=== PATIENT | female | born 1975 | race Caucasian/White ===

== ENCOUNTER 2023-01-29 08:08 | Outpatient (CLI) | payer OTHER, SELFPAY | END 2023-01-29 08:09 | disposition home or self-care (01) | LOC: INJ CL 08:08 | PROVIDERS: PCP Student in an Organized Health Care Education/Training Program; Visit Provider Family Medicine | DX: M54.16 Radiculopathy, lumbar region (principal); M51.36 Other intervertebral disc degeneration, lumbar region | CPT/HCPCS: 62323; J0702; Q9966 ==

== ENCOUNTER 2024-02-02 14:52 | Emergency (ER) | payer OTHER, SELFPAY ==
[2024-02-02 14:57] VITALS: BP 122/89; PULSE 106; RESP 16; TEMP 36.6; O2SAT 99; BMI 36.7
--- NOTE | 2024-02-02 15:03 | ED.UPPEXIN ---
HPI - Extremity Injury (Upper) General Time Seen by Provider: 15:04 Date Seen: 02/02/24 Chief Complaint: Extremity Pain/Injury, Upper Stated Complaint: L wrist popped at work Time Seen by Provider: 02/02/24 14:53 Source: patient and RN notes reviewed Mode of arrival: ambulatory Limitations: no limitations History of Present Illness HPI narrative: This 48-year-old female is coming in with left wrist pain that started at work while changing out the bag for the for the [employer] machine. Patient works at [employer]. This happened just prior to arrival. She was taking out the bag, removing the bottom been portion, went to replace it in and had a sudden pop in her right wrist, points to the ulnar area. She has pain that does shoot up the medial side of the forearm. It hurts if she supinates her arm. No numbness tingling. Did not hit this. She put ice on it right away. She did take a naproxen around 10:00 a.m. for generalized aches and pains that she has on a daily basis per report. Related Data Home Medications ?Medication ?Instructions ?Recorded ?Confirmed clonidine HCl 0.1 mg tablet 0.1 mg PO BID 01/05/23 01/05/23 cyclobenzaprine 10 mg tablet 10 mg PO 3XD 01/05/23 01/05/23 Allergies Allergy/AdvReac Type Severity Reaction Status Date / Time No Known Drug Allergies Allergy Verified 01/05/23 12:51 Review of Systems Narrative: As per HPI. Exam Const: Vital Signs, click to edit/add: Vital Signs - 24 hr 02/02/24 14:57 Temperature 98 F Pulse Rate [Pulse Oximeter] 106 H Respiratory Rate 16 Blood Pressure [Ri ght Upper Arm] 122/89 Pulse Oximetry 99 Oxygen Delivery Me thod Room Air This 48-year-old female is alert, interactive, no apparent distress. Ambulatory into the ED of her own accord. She has an ice pack on the medial portion of her wrist. On inspection, there is no visible erythema, no ecchymosis, no swelling noted about her wrist joint. Distal sensation of her fingers are intact, has normal cap refill. Has normal flexion and extension of her fingers, if the wrist is kept in neutral position she can mobilize her fingers without any problem. She has strong radial pulse, no snuffbox tenderness. Her pain seems to be over the distal ulnar area into that medial joint but there is no noted swelling at this time. She can flex and extend at the wrists, has normal resisted flat khalil and extension at the wrist. Ulnar deviation does not bother her but radial deviation causes pain along the distal ulnar area. There is no pain in the forearm. She has full range of motion about the elbow and no palpable pain about the elbow. Documenting provider has reviewed patient's vital signs: yes Course Course ED Course: Reviewed with patient that we will obtain x-rays just to ensure that we do not see any small avulsion. This certainly could be tendinitis or even cartilaginous tear within the wrist. If x-rays are negative, will place her in a wrist splint and have her follow-up with Dr. Schrader whom she is established with. Reevaluation(s) Time of Reevaluation #1: 15:40 Reevaluation #1: Reviewed with patient her x-ray report, did show her a picture of the dystrophic calcification that is seen. Will put her in the wrist splint, give her limits of using the splinting and no lifting greater than 10 lb until further evaluation. She will need to follow-up with Dr. Schrader. Vital Signs Vital signs: Initial Vital Signs Temperature 98 F 02/02/24 14:57 Temperature Source Temporal Artery Scan 02/02/24 14:57 Pulse Rate 106 H 02/02/24 14:57 Respiratory Rate 16 02/02/24 14:57 Blood Pressure 122/89 02/02/24 14:57 Blood Pressure Mean 100 02/02/24 14:57 Blood Pressure Position Sitting 02/02/24 14:57 Pulse Oximetry 99 02/02/24 14:57 Oxygen Delivery Method Room Air 02/02/24 14:57 Vital Signs Temperature 98 F 02/02/24 14:57 Pulse Rate 106 H 02/02/24 14:57 Respiratory Rate 16 02/02/24 14:57 Blood Pressure 122/89 02/02/24 14:57 Pulse Oximetry 99 02/02/24 14:57 Oxygen Delivery Method Room Air 02/02/24 14:57 Temperature 98 F 02/02/24 14:57 Pulse Rate 106 H 02/02/24 14:57 Respiratory Rate 16 02/02/24 14:57 Blood Pressure 122/89 02/02/24 14:57 Pulse Oximetry 99 02/02/24 14:57 Oxygen Delivery Method Room Air 02/02/24 14:57 MDM - Extremity Injury (Upper) Imaging Data XR left wrist: Attestation: I have reviewed the pertinent imaging results. My impression: Do not appreciate any fracture, await Radiology over-read. Radiologist's impression: Patient: ROSMERY RUBIN Facility:?[facility] Patient ID:?[id number] Site Patient ID:?[id number]. Site :?[id number] Study:?XRay-Extremity Left Wrist 3V-02/02/2024 3:21:44 PM Ordering Physician:?Keri Gilmore Final Report: Indication: Pain over distal ulna Technique: Three views left wrist Comparison: None Findings/Impression: Bones: Alignment is normal. No fractures or bone lesions. Joint spaces: Unremarkable. Soft tissues: Minimal dystrophic calcification dorsal aspect of the wrist. Dictated by Ankit Kelly MD @ 02/02/2024 3:31:19 PM (Electronic Signature) Discharge Plan Discharge Clinical Impression: Acute pain of left wrist Instructions: Wrist Injury (ED) Additional Instructions: Use wrist splint while working in his needed for comfort. Can continue to ice and elevate to help decrease pain in the next couple of days. Can use Tylenol and ibuprofen per bottle directions. If you are on naproxen chronically, would avoid ibuprofen but still can use Tylenol. Please contact the clinic and get scheduled for follow-up with Dr. Schrader preferably within the next week. He will need to re-evaluate and direct any further management. This certainly could be ligamentous or cartilage injury within the wrist. It is undefined exactly what the extent of the pain is coming from and will need further evaluation. Activity Level: Activity as Tolerated Prescriptions: No Action cyclobenzaprine 10 mg tablet 10 mg PO 3XD clonidine HCl 0.1 mg tablet 0.1 mg PO BID Follow Up/Referrals: MILTON MAN DO [Primary Care Provider] - Stand Alone Forms: [employer] Info Instructions
--- NOTE | 2024-02-02 15:08 | CRLHL7_ITS ---
For Patients: As a result of the Century Cures Act, medical imaging exams and procedure reports are released immediately into your electronic medical record. You may view this report before your referring provider. If you have questions, please contact your health care provider. Indication: Pain over distal ulna Technique: Three views left wrist Comparison: None Findings/Impression: Bones: Alignment is normal. No fractures or bone lesions. Joint spaces: Unremarkable. Soft tissues: Minimal dystrophic calcification dorsal aspect of the wrist. Dictated by Ankit Kelly MD @ 02/02/2024 3:31:19 PM (Electronically Signed)
== END 2024-02-02 15:57 | disposition home or self-care (01) ==
LOC: ED 15:33
PROVIDERS: Emergency Provider Family Medicine; PCP Student in an Organized Health Care Education/Training Program
DX: M25.532 Pain in left wrist (principal)
CPT/HCPCS: 73110; 99283

== ENCOUNTER 2024-10-27 13:43 | Emergency (ER) | payer OTHER, SELFPAY ==
--- OUTSIDE RECORDS SUMMARY | 2024-09-12 08:45 | XMS_ITS | Encounter Summary ---
Author Organization [address] [place] [address] Care Team Providers Care Administrative Resident Name Role Phone Clarke Martinez DO Primary Care Provider [phone] Reason for Visit * Rehab Therapy Occupational Therapy (Routine: Next available opening) - Authorized Specialty Diagnoses / Procedures Referred By Jair hernandez Referred To Contact Occupational Therapy Diagnoses Cerebrovascular accident (CVA) due to other mechanism (H) [address] [address] Phone: tel: Referral ID Status Reason Start Date Expiration Date V isits Requested Visits Authorized [id number] Authorized 03/08/2024 03/07/2025 60 60 Encounter Details Date Type Department Care Team (Late st Contact Info) Description 09/12/2024 8:45 AM CDT Therapy Visit [address] [phone] Stacia Zurita MD [address] [id number] Sandra Hernandez OTR [facility] [address] [place] [address] Cerebrovascular accident (CVA) due to other mechanism (H) (Primary Dx) Social History Tobacco Use Types Packs/Day Years Used Date Smoking Tobacco: Never Alcohol Use Standard Drinks/Week Comments Not Currently 0 (1 standard drink = 0.6 oz pur e alcohol) Food Insecurity Answer Date Recorded Within the past 12 months, d id you worry that your food would run out before you got money to buy more? No 05/02/2024 Within the past 12 months, d id the food you bought just not last and you didn t have money to get more? No 05/02/2024 Housing Stability Answer Date Recorded Do you have housing? (David luna is defined as stable permanent housing and does not include staying outside in a car, in a tent, in an abandoned building, in an overnight snf, or couch-surfing.) Yes 05/02/2024 Are you worried about losing your housing? No 05/02/2024 Financial Resource Strain Answer Date R ecorded Within the past 12 months, h ave you or your family members you live with been unable to get utilities (heat, electricity) when it was really needed? No 05/02/2024 Transportation Needs Answer Date Record ed Within the past 12 months, h as lack of transportation kept you from medical appointments, getting your medicines, non-medical meetings or appointments, work, or from getting things that you need? No 05/02/2024 Interpersonal Safety Answer Date Record ed Do you feel physically and e motionally safe where you currently live? Yes 05/18/2024 Within the past 12 months, h ave you been hit, slapped, kicked or otherwise physically hurt by someone? No 05/18/2024 Within the past 12 months, h ave you been humiliated or emotionally abused in other ways by your partner or ex-partner? No 05/18/2024 Comments Unknown Sex and Gender Information Value Date Recorded Sex Assigned at Not on file Legal Sex Female 5:46 PM CDT Gender Identity Not on file Sexual Orientation Not on file documented as of this encounter Plan of Treatment Upcoming Encounters Date Type Department Care Team (Late st Contact Info) Description 11/02/2024 7:15 AM CDT Office Visit [facility] [address] [facility] [address] [place] [phone] Lemuel Davis MD [address] [place], [place] [phone] Charly Howell MD [address] [facility] [address] [place], [place] [id number] 11/23/2024 3:30 PM CDT Office Visit [facility] Neurology [address] [place] [address] Meghann Navarro, [facility] [address] [facility] [id number] [place] [address] documented as of this encounter Visit Diagnoses Diagnosis Cerebrovascular accident (CVA) due to other mechanism (H)- Primary documented in this encounter Care Teams Administrative Resident Relationship Specialty Start Date End Date Clarke Martinez DO [address] [place] [address] PCP - General 05/04/24 documented as of this encounter
--- OUTSIDE RECORDS SUMMARY | 2024-09-18 08:45 | XMS_ITS | Encounter Summary ---
Author Organization [address] [place] [address] Care Team Providers Care Pipe Stem Sawyer Name Role Phone Clarke Martinez DO Primary Care Provider [phone] Reason for Visit * Rehab Therapy Occupational Therapy (Routine: Next available opening) - Authorized Specialty Diagnoses / Procedures Referred By Jair hernandez Referred To Contact Occupational Therapy Diagnoses Cerebrovascular accident (CVA) due to other mechanism (H) [address] [address] Phone: tel: Referral ID Status Reason Start Date Expiration Date V isits Requested Visits Authorized [id number] Authorized 03/08/2024 03/07/2025 60 60 Encounter Details Date Type Department Care Team (Latest Contact Info) Description 09/18/2024 8:45 AM CDT Therapy Visit [address] [phone] Stacia Zurita MD [address] [id number] Sindi Gutierrez, OTR Cerebrovascular accident (CVA) due to other mechanism (H) (Primary Dx); Visual disturbance; Lack of coordination Social History Tobacco Use Types Packs/Day Years [...] in an abandoned building, in an overnight long-term, or couch-surfing.) Yes 05/02/2024 Are you worried [...] Description 11/02/2024 7:15 AM CDT Office Visit [facility] [address] [facility] [address] [place] [address] Lemuel Davis MD [address] [place] [address] Charly Howell MD [address] [facility], CLINIC [address] [place] [address] 11/23/2024 3:30 PM CDT Office Visit [facility] Neurology [address] [place] [phone] Meghann Navarro, CONTRACT TECHNICAL WRITER [facility] [id number] [place], [place] [id number] documented as of this encounter Visit Diagnoses Diagnosis Cerebrovascular accident (CVA) due to other mechanism (H)- Primary Visual disturbance Unspecified visual disturbance Lack of coordination documented in this encounter Care Teams Pipe Stem Sawyer Relationship Specialty Start Date End Date Clarke Martinez DO [address] [place] [address] PCP - General 05/04/24 documented as of this encounter
--- OUTSIDE RECORDS SUMMARY | 2024-09-25 08:45 | XMS_ITS | Encounter Summary ---
Author Organization [address] [place] [address] Care Team Providers Care Living Nurse Name Role Phone Clarke Martinez DO Primary Care Provider [phone] Reason for Visit * Rehab Therapy Occupational Therapy (Routine: Next available opening) - Authorized Specialty Diagnoses / Procedures Referred By Jair hernandez Referred To Contact Occupational Therapy Diagnoses Cerebrovascular accident (CVA) due to other mechanism (H) [address] [address] Phone: tel: Referral ID Status Reason Start Date Expiration Date V isits Requested Visits Authorized [id number] Authorized 03/08/2024 03/07/2025 60 60 Encounter Details Date Type Department Care Team (Late st Contact Info) Description 09/25/2024 8:45 AM CDT Therapy Visit [address] [phone] Stacia Zurita MD [address] [id number] Sandra Hernandez OTR [facility] [address] [place] [address] Cerebrovascular accident (CVA) due to [...] in an abandoned building, in an overnight retirement, or couch-surfing.) Yes 05/02/2024 Are you worried [...] Description 11/02/2024 7:15 AM CDT Office Visit [facility] [address] [facility] [address] [place] [phone] Lemuel Davis MD [address] [place], [place] [address] Charly Howell MD 516 [facility] CL[facility] [address] [place], [place] [address] 11/23/2024 3:30 PM CDT Office Visit [facility] Neurology [address] [place] [address] Meghann Navarro, [facility] [address] [facility] [id number] [place] [address] documented as of this encounter Visit Diagnoses Diagnosis Cerebrovascular accident (CVA) due to other mechanism (H)- Primary documented in this encounter Care Teams Living Nurse Relationship Specialty Start Date End Date Clarke Martinez DO [address] [place] [address] PCP - General 05/04/24 documented as of this encounter
--- OUTSIDE RECORDS SUMMARY | 2024-09-27 10:00 | XMS_ITS | Encounter Summary ---
Author Organization [place] Address [facility] [place] [address] Care Team Providers Care Parts Sales Representative Name Role Phone Clarke Martinez Primary Care Provider [phone] Reason for Referral * Clinically Administered Medications (Routine) - Authorized Specialty Diagnoses / Procedures Referred By Jair hernandez Referred To Contact Neurology Diagnoses Intractable chronic migraine without aura and without status migrainosus Procedures ZZC BOTULINUM TOXIN A PER 1 UNIT 155 units [id number] Meghann Navarro APRN EGG TRAYER [address] [place] [phone] Phone: tel: fax: [facility] [address] 3rd [place] [address] Phone: tel: fax: Referral ID Status Reason Start Date Expiration Date V isits Requested Visits Authorized [id number] Authorized 09/29/2024 03/07/2025 100 100 * Medication Prior Authorization - Closed Specialty Diagnoses / Procedures Referred By Jair hernandez Referred To Contact Diagnoses Migraine without aura and without status migrainosus, not intractable Meghann Navarro APRN EGG TRAYER [address] [place], [place] [id number] Phone: tel: fax: Referral ID Status Reason Start Date Expiration Date Visits Re quested Visits Authorized [id number] Closed 1 1 * Consultation (Routine: Next available opening) - Pending Review Specialty Diagnoses / Procedures Referred By Contanel t Referred To Contact Ophthalmology Diagnoses H/O ischemic multifocal multiple vascular territories stroke Visual impairment Meghann Navarro APRN EGG TRAYER [address] [address] Phone: tel: fax: Referral ID Status Reason Start Date Expiration Date V isits Requested Visits Authorized [id number] Pending Review 09/27/2024 09/27/2025 1 1 Question Answer Referral Type: Optometry/Ophthalmology Reason for Referral: Comprehensive Eye Exam Patient Scheduling Instructions: [facility] will call you to coordinate your care as prescribed by your provider. If you don't hear from a ict sales representative within 2 business days, please call . Additional Information: visual impairement and recent history of multifocal strokes Comments Please be aware that coverage of these services is subject to the terms and limitations of your health insurance plan. Call member services at your health plan with any benefit or coverage questions. [employer] will call you to coordinate your care as prescribed by your provider. If you don't hear from a ict sales representative within 2 business days, please call . Reason for Visit * Reason Comments Headache * Consultation (Routine: Next available opening) - Pending Review Specialty Diagnoses / Procedures Referred By Contanel t Referred To Contact Diagnoses Cerebrovascular accident (CVA) due to other mechanism (H) Ramy Vanegas MD [address] [place] [address] Phone: tel: fax:[phone] Referral ID Status Reason Start Date Expiration Date V isits Requested Visits Authorized [id number] Pending Review 05/09/2024 05/09/2025 1 1 Encounter Details Date Type Department Care Team (Leonie st Contact Info) Description 09/27/2024 10:00 AM CDT Virtual Visit [facility] [address] [place] [address] Meghann Navarro, DONTE [id number] [place] [address] Intractable chronic migraine without aura and without status migrainosus (Primary Dx); H/O ischemic multifocal multiple vascular territories stroke; Visual impairment; Migraine without aura and without status migrainosus, not intractable Social History Tobacco Use Types Packs/Day Years Used Date Smoking Tobacco: Never Smokeless Tobacco: Never Tobacco Cessation:Counseling Given: Not Answered Alcohol Use Standard Drinks/Week Comments Not Currently 0 (1 standard drink = 0.6 oz pur e alcohol) PHQ-2 Answer Date Recorded PHQ-2 Score 3 09/27/2024 Food Insecurity Answer Date Recorded Within the [...] Date Recorded Do you have housing? (David g is defined as stable permanent housing and does not include staying outside in a car, in a tent, in an abandoned building, in an overnight fpc, or couch-surfing.) Yes 05/02/2024 Are you worried [...] on file documented as of this encounter Patient Instructions * Patient Instructions* Meghann Navarro APRN CNP - 09/27/2024 10:00 AM CDT Plan: Updated eye exam Acute Treatment: -For acute treatment of mild headache, take acetaminophen as needed. Do not exceed more than 10 days per month to avoid medication overuse. -For acute treatment of moderate to severe headache, take reyvow at the onset of headache, Do not exceed more than 4 days per month. Do not drive for at least 8 hours -may cause severe drowsiness -For headache related nausea, or as a rescue medicine for headache, prochlorperazine with benadryl needed. Preventive Treatment: -For headache prevention, may try to increase topiramate -up to 100 mg at bedtime -take 3 pills at bedtime for a week than take four pills if tolerated Adding Botox to migraine prevention History of stroke, recovering slowly and less facial and right hand strength recovered. Able to drive again. Blood pressure improved Follow up -will call you Botox approved Non Botox -in 3-6 months after starting Botox * Attachments The following attachments cannot be sent through Care Everywhere. * Lasmiditan (Russian) * OnabotulinumtoxinA Injection (Russian) documented in this encounter Progress Notes * Meghann Navarro APRN CNP - 09/27/2024 10:00 AM CDT Images from the original note were not included. Virtual Visit Details Type of service: Video Visit Originating Location (pt. Location): Home Distant Location (provider location): Off-site Platform used for Video Visit: [facility] Headache Neurology Consult September 27, 2024 Yumiko Loya Date of : 1975 Age: [age] year old Requesting physician: Ramy Vanegas MD Assessment and Recommendations: Yumiko Loya is a 49 year old female Chronic migraines complicated by history of recent stroke Visual impairment Plan: Updated eye exam Acute Treatment: -For acute treatment of mild headache, take acetaminophen as needed. Do not exceed more than 10 days per month to avoid medication overuse. -For acute treatment of moderate to severe headache, take reyvow at the onset of headache, Do not exceed more than 4 days per month. Do not drive for at least 8 hours -may cause severe drowsiness -For headache related nausea, or as a rescue medicine for headache, prochlorperazine with benadryl needed. Preventive Treatment: -For headache prevention, may try to increase topiramate -up to 100 mg at bedtime -take 3 pills at bedtime for a week than take four pills if tolerated Adding Botox to migraine prevention History of stroke, recovering slowly and less facial and right hand strength recovered. Able to drive again. Blood pressure improved. Continue to follow up with PCP/has appointment with one of our general neurologist Follow up -will call you Botox approved Non Botox -in 3-6 months after starting Botox The longitudinal plan of care for Yumiko was addressed during this visit. Due to the added complexity in care, I will continue to support Yumiko in the subsequent management of this condition(s) and with the ongoing continuity of care of this condition(s). 56 minutes spent on the date of the encounter doing video access, chart review, results review, meds review, treatment plan, documentation and further activities as noted above Meghann Navarro APRN, EGG TRAYER [facility] Chief Complaint: Chief Complaint Patient presents with Headache History is obtained from the patient and medical record. 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 Patient is on hydralazine, clonidine, verapamil for blood pressure management Last visit with PCP Dr Martinez's note reviewed. Headache history: Headaches since teen. Mother and maternal line -all deal with headaches and a lot of paternal side -headaches. Stroke in the family. Total headaches any type/pain degree 30 days out of 30 days per month and moderate to severe 30 days out of 30 days per month in the past 3 months. Associated with light and noise sensitivity, no nausea currently or vomiting, sometimes blurry vision. Pain feels like a zafar squeezing head both side before stoke and now headache more upper left /top and feels like pressure. Leading up to stroke had thunderclap headaches 6 weeks before stroke and did not respond to treatment-headaches were triggered/worsen with sexual activity and maximized on sumatriptan. Headaches were consistently severe first weeks after the stroke and now gradually improving because staying on top of her headaches with medications-naproxen. Takes naproxen a couple times/day and may be 3 days/week. Trying to take acetaminophen instead and not as bed headaches in the past 2 weeks. Being in the dark and quiet room and medical marijuana keep headaches lower. Does headache treatment everyday. Vision is impaired post stroke -lost near vision -close Blood pressure normalized per last PCP visit-120s Headache Tx Started on topiramate in May and has been taking 50 mg at bedtime and no side effects. No historyof renal stones. 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 Past Medical History: Past Medical History: Diagnosis Date Chronic headaches Hot flashes Past Surgical History: Past Surgical History: Procedure Laterality Date IR ANGIOGRAM CAROTID CERVICAL BILATERAL 05/06/2024 IR CAROTID CEREBRAL ANGIOGRAM BILATERAL 05/03/2024 Social History: Social History Socioeconomic History Marital status: Spouse name: Not on file Number of children: Not on file Years of education: Not on file Highest education level: Not on file Occupational History Not on file Tobacco Use Smoking status: Never Smokeless tobacco: Never Substance and Sexual Activity Alcohol use: Not Currently Drug use: Not on file Sexual activity: Not on file Other Topics Concern Not on file Social History Narrative Not on file Social Drivers of Health Financial Resource Strain: Low Risk (05/02/2024) Financial Resource Strain Within the past 12 months, have you or your family members you live with been unable to get utilities (heat, electricity) when it was really needed?: No Food Insecurity: Low Risk (05/02/2024) Food Insecurity Within the past 12 months, did you worry that your food would run out before you got money to buy more?: No Within the past 12 months, did the food you bought just not last and you didn???t have money to getmore?: No Transportation Needs: Low Risk (05/02/2024) Transportation Needs Within the past 12 months, has lack of transportation kept you from medical appointments, getting your medicines, non-medical meetings or appointments, work, or from getting things that you need?: No Physical Activity: Not on file Stress: Not on file Social Connections: Socially Integrated (10/04/2023) [facility] from [facility] [employer] [facility] Social Connections Do you often feel lonely or isolated from those around you?: 0 Interpersonal Safety: Low Risk (05/18/2024) Interpersonal Safety Do you feel physically and emotionally safe where you currently live?: Yes Within the past 12 months, have you been hit, slapped, kicked or otherwise physically hurt by someone?: No Within the past 12 months, have you been humiliated or emotionally abused in other ways by your partner or ex-partner?: No Housing Stability: Low Risk (05/02/2024) Housing Stability Do you have housing? : Yes Are you worried about losing your housing?: No Family History: Family History Problem Relation Age of Onset Coronary Artery Disease Early Onset Mother 35 Cerebrovascular Disease Father 55 Allergies: No Known Allergies Medications: Current Outpatient Medications: aspirin 81 MG EC tablet, Take 1 tablet (81 mg) by mouth daily., Disp: 100 tablet, Rfl: 0 cloNIDine (CATAPRES) 0.1 MG tablet, Take 1 tablet (0.1 mg) by mouth 2 times daily., Disp: 60 tablet, Rfl: 0 cyclobenzaprine (FLEXERIL) 10 MG tablet, Take 10 mg by mouth 3 times daily as needed for muscle spasms., Disp: , Rfl: hydrALAZINE (APRESOLINE) 25 MG tablet, Take 0.5 tablets (12.5 mg) by mouth every 8 hours., Disp: 90tablet, Rfl: 0 magnesium oxide (MAG-OX) 400 MG tablet, Take 1 tablet (400 mg) by mouth daily., Disp: 90 tablet, Rfl: 0 naproxen (NAPROSYN) 500 MG tablet, Take 500 mg by mouth 2 times daily as needed for moderate pain.,Disp: , Rfl: topiramate (TOPAMAX) 25 MG tablet, Take 1 tablet (25 mg) by mouth at bedtime. For 6days then increase to 2tablets po at bedtime daily, Disp: 120 tablet, Rfl: 0 verapamil ER (CALAN-SR) 240 MG CR tablet, Take 1 tablet (240 mg) by mouth at bedtime., Disp: 90 tablet, Rfl: 0 albuterol (PROAIR HFA/PROVENTIL HFA/VENTOLIN HFA) 108 (90 Base) MCG/ACT inhaler, Inhale 1-2 puffs into the lungs every 4 hours as needed for shortness of breath or wheezing., Disp: , Rfl: Physical Exam: There were no vitals taken for this visit. Physical Exam: General: NAD Neurologic: Mental Status Exam: Alert, awake and oriented to situation. No dysarthria. Speech of normal fluency. Data: MRI brain ( 12/01/2022 9:20 AM CDT Office Visit [facility] [place] [facility] [address] [place] [address] Avinash Hayden MD [address] [place] [address] Consult (Headaches, referred by Dr Schrader) 09/27/2024 9:58 AM HIT-6 When you have headaches, how often is the pain severe 10 How often do headaches limit your ability to do usual daily activities including household work, work, school, or social activities? 13 When you have a headache, how often do you wish you could lie down? 13 In the past 4 weeks, how often have you felt too tired to do work or daily activities because of your headaches 13 In the past 4 weeks, how often have you felt fed up or irritated because of your headaches 13 In the past 4 weeks, how often did headaches limit your ability to concentrate on work or daily activities 13 HIT-6 Total Score 75 Proxy-reported 09/27/2024 9:59 AM MIDAS - in the past three months: On how many days did you miss work or school because of your headaches? 0 How many days was your productivity at work or school reduced by half or more because of your headaches? 0 On how many days did you not do household work because of your headaches? 25 How many days was your productivity in household work reduced by half or more because of your headaches? 25 On how many days did you miss family, social, or leisure activities because of your headaches? 10 On how many days did you have a headache? 90 On a scale of 0-10, on average how painful were these headaches? 4 MIDAS Score 60 (IV - Severe Disability) documented in this encounter Nursing Notes * Tigist Briones - 09/27/2024 10:00 AM CDT Current patient location: [address] [place] [address] Is the patient currently in the state of [place]? YES Visit mode: VIDEO If the visit is dropped, the patient can be reconnected by:TELEPHONE VISIT: Phone number: Telephone Information: Will anyone else be joining the visit? NO (If patient encounters technical issues they should call [phone] :[phone]) Are changes needed to the allergy or medication list? Pt stated no med changes Are refills needed on medications prescribed by this physician? NO Rooming Documentation: Questionnaire(s) completed Reason for visit: Headache Tigist Briones VVF documented in this encounter Plan of Treatment Upcoming Encounters Date Type Department Care Team (Late st Contact Info) Description 11/02/2024 7:15 AM CDT Office Visit [facility] [address] [facility] [address] Clin [address] [place] [phone] Lemuel Davis MD [address] [place] [address] Charly Howell MD [address] [facility] [address] [place], [place] [phone] 11/23/2024 3:30 PM CDT Office Visit [facility] [address] [place] [address] Meghann Navarro, ROCK WORKER [facility] [address] [facility] [id number] [place], [place] [id number] Scheduled Referrals Name Type Priority Associated Diagnoses Orde r Schedule Adult Eye Aerospace Assembler Referral Referral Routine: Next available opening H/O ischemic multifocal multiple vascular territories stroke Visual impairment Expected: 09/27/2024 (Approximate), Expires: 09/27/2025 documented as of this encounter Visit Diagnoses Diagnosis Intractable chronic migraine without aura and without status migrainosus- Primary Chronic migraine without aura, with intractable migraine, so stated, without mention of status migrainosus H/O ischemic multifocal multiple vascular territories stroke Transient ischemic attack (TIA), and cerebral infarction without residual deficits Visual impairment Unspecified visual loss Migraine without aura and without status migrainosus, not intractable Migraine without aura, without mention of intractable migraine without mention of status migrainosus documented in this encounter Additional Health Concerns Assessment Noted Time PHQ-9 Depression Total Score: 7 09/28/19 25 9:57 AM CDT documented as of this encounter Care Teams Parts Sales Representative Relationship Specialty Start Date End Date Clarke Martinez [place] [address] PCP - General 05/04/24 documented as of this encounter
--- OUTSIDE RECORDS SUMMARY | 2024-10-03 08:45 | XMS_ITS | Encounter Summary ---
Author Organization [address] [place] [address] Care Team Providers Care Associate Professor Of Biblical Studies Name Role Phone Clarke Martinez DO Primary Care Provider [phone] Reason for Visit * Rehab Therapy Occupational Therapy (Routine: Next available opening) - Authorized Specialty Diagnoses / Procedures Referred By Jair hernandez Referred To Contact Occupational Therapy Diagnoses Cerebrovascular accident (CVA) due to other mechanism (H) [address] [address] Phone: tel: Referral ID Status Reason Start Date Expiration Date V isits Requested Visits Authorized [id number] Authorized 03/08/2024 03/07/2025 60 60 Encounter Details Date Type Department Care Team (Late st Contact Info) Description 10/03/2024 8:45 AM CDT Therapy Visit [address] [phone] Stacia Zurita MD [address] [id number] Sandra Hernandez OTR [facility] [address] [place] [address] Cerebrovascular accident (CVA) due to other mechanism (H) (Primary Dx) Social History Tobacco Use Types Packs/Day Years Used Date Smoking Tobacco: Never Smokeless Tobacco: Never Alcohol Use Standard Drinks/Week Comments [...] in an abandoned building, in an overnight jail, or couch-surfing.) Yes 05/02/2024 Are you worried [...] Upcoming Encounters Date Type Department Care Team ([facility] st Contact Info) Description 11/02/2024 7:15 AM CDT Office Visit [address] [address] Lemuel Davis MD [address] [place], [place] [address] Charly Howell MD [address] [facility] [address] [place] [address] 11/23/2024 3:30 PM CDT Office Visit [facility] Neurology [address]rd [place] [phone] Meghann Navarro, DONTE [facility] [address] [facility] [id number] [place], [place] [address] documented as of this encounter Visit Diagnoses Diagnosis Cerebrovascular accident (CVA) due to other mechanism (H)- Primary documented in this encounter Additional Health Concerns Assessment Noted Time PHQ-9 Depression Total Score: 7 09/28/19 25 9:57 AM CDT documented as of this encounter Care Teams Associate Professor Of Biblical Studies Relationship Specialty Start Date End Date Clarke Martinez DO [address] [place] [address] PCP - General 05/04/24 documented as of this encounter
--- OUTSIDE RECORDS SUMMARY | 2024-10-09 08:45 | XMS_ITS | Encounter Summary ---
Author Organization [address] [place] [address] Care Team Providers Care Optical Glass Inspector Name Role Phone Clarke Martinez DO Primary Care Provider [phone] Reason for Visit * Rehab Therapy Occupational Therapy (Routine: Next available opening) - Authorized Specialty Diagnoses / Procedures Referred By Jair hernandez Referred To Contact Occupational Therapy Diagnoses Cerebrovascular accident (CVA) due to other mechanism (H) [address] [address] Phone: tel: Referral ID Status Reason Start Date Expiration Date V isits Requested Visits Authorized [id number] Authorized 03/08/2024 03/07/2025 60 60 Encounter Details Date Type Department Care Team (Late st Contact Info) Description 10/09/2024 8:45 AM CDT Therapy Visit [address] [phone] Stacia Zurita MD [address] [id number] Sandra Hernandez OTR [facility] [address] [place] [address] Cerebrovascular accident (CVA) due to [...] in an abandoned building, in an overnight fci, or couch-surfing.) Yes 05/02/2024 Are you worried [...] Upcoming Encounters Date Type Department Care Team ([facility] st Contact Info) Description 11/02/2024 7:15 AM CDT Office Visit [address] [address] Lemuel aDvis MD [address] [place], [place] [address] Charly Howell MD [address] [facility] [address] [place] [address] 11/23/2024 3:30 PM CDT Office Visit [facility] Neurology [address]rd [place] [phone] Meghann Navarro, DONTE [facility] 909 [facility] [id number] [place], [place] [address] documented as of this encounter Visit Diagnoses Diagnosis Cerebrovascular accident (CVA) due to other mechanism (H)- Primary documented in this encounter Additional Health Concerns Assessment Noted Time PHQ-9 Depression Total Score: 7 09/28/19 25 9:57 AM CDT documented as of this encounter Care Teams Optical Glass Inspector Relationship Specialty Start Date End Date Clarke Martinez DO [address] [place] [address] PCP - General 05/04/24 documented as of this encounter
--- OUTSIDE RECORDS SUMMARY | 2024-10-12 08:00 | XMS_ITS | Encounter Summary ---
Author Organization [facility] Address [address] [facility] [place] [address] Care Team Providers Care Beauty Shop Manager Name Role Phone Clarke Martinez DO Primary Care Provider [phone] Reason for Visit * Reason Comments Consult Since leaving hospit al, feeling very fatigue; PCP told her ask whether continuing hydralazine is necessary anymore * Consultation (Routine: Next available opening) - Pending Review Specialty Diagnoses / Procedures Referred By Contac t Referred To Contact Diagnoses Cerebrovascular accident (CVA) due to other mechanism (H) Ramy Vanegas MD [address] [place] [id number] Phone: tel: fax: Referral ID Status Reason Start Date Expiration Date V isits Requested Visits Authorized [id number] Pending Review 05/09/2024 05/09/2025 1 1 Encounter Details Date Type Department Care Team (Latest Contact Info) Description 10/12/2024 8:00 AM CDT Office Visit [facility] Neurology Clinics - [address], [address] [place] [address] Ramy Vanegas MD [address] [place] [address] Ángel De La Torre MD [address] [facility] [place] [address] 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); Reversible cerebrovascular vasoconstriction syndrome Social History Tobacco Use Types Packs/Day Years [...] in an abandoned building, in an overnight longterm, or couch-surfing.) Yes 05/02/2024 Are you worried [...] on file documented as of this encounter Last Filed Vital Signs Vital Sign Reading Time Taken Comments Blood Pressure 112/78 10/12/2024 7:45 AM CDT Pulse 76 10/12/2024 7:45 AM CDT Temperature - - Respiratory Rate - - Oxygen Saturation 98% 10/12/2024 7:45 AM CDT Inhaled Oxygen Concentration - - Weight 96.6 kg (213 lb) 10/12/2024 7:45 AM CDT Height - - Body Mass Index 41.6 05/02/2024 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 Symptoms and signs of stroke were discussed. You should call 911 with any SUDDEN onset of weakness,vision loss, speech problems, numbness, or severe headache of unknown cause. For secondary stroke prevention: -Continue aspirin and atorvastatin lifelong with LDL goals as listed below -Long-term blood pressure goal is less than 130/85 -Long-term LDL goal is 40-70, but at least less than 100 -Long-term goal of hemoglobin A1C is less than 7.0 -Low-salt low-fat diet -Regular aerobic exercise 30 minutes 3-4 times per week Next follow-up appointment is on as needed basis. Please do not hesitate to call me with any questions or concerns. Thanks. documented in this encounter Progress Notes * Ángel De La Torre MD - 10/12/2024 8:00 AM CDT ESTABLISHED PATIENT NEUROLOGY NOTE DATE OF VISIT: 10/12/2024 CLINIC LOCATION: [facility] PATIENT NAME: Yumiko Loya DATE of : 1975 REASON FOR VISIT: Chief Complaint Patient presents with Consult Since leaving hospital, feeling very fatigue; PCP told her ask whether continuing hydralazine is necessary anymore SUBJECTIVE: HISTORY OF PRESENT ILLNESS: Patient is new to me, but was previously seen by stroke neurology team.History and prior evaluation are briefly summarized below. Please refer to previous neurology notesfor more detailed information. Accompanied by her . Per chart review, the patient has history of hypertension and headaches/migraines. On 05/02/20[facility] thunderclap headache followed by lingering headaches associated with intermittent vision changes, slurred speech, and confusion after taking triptans. Urinetox screen was positive for marijuana. Initial brain MRI from 05/02/2024 demonstrated patchy and confluent areas of restricted diffusion with cortical/subcortical involvement within the left parietal and occipital lobe without associated enhancement, felt compatible with acute/subacute ischemic changes in the borderline zone of the left MCA/SNUFF BLENDER territory. Head MRA demonstrated bilateral multifocal stenosis involving peripheral branchesdistribution of the MCA/SNUFF BLENDER territories and to lesser extent ARTURO vascular distribution, concerning for possible vasculitis/vasospasm. Neck MRA was negative for hemodynamically significant stenosis ordissection. Head CTA demonstrated multifocal intracranial arterial stenosis. Neck CTA was unrevealin g. Repeat MRI for worsening vision on 05/05/2024 revealed new right parietal region acute ischemic stroke. Cerebral angiogram on 05/06 revealed diffuse segmental narrowing, felt consistent with RCVS. Onrepeat head and neck CTA from 07/11/2024 previously demonstrated multifocal luminal irregularity and stenoses involving the cerebral arteries has significantly diminished/essentially resolved, comparedto prior exams. No residual flow-limiting stenosis involving the major intracranial arteries was seen. Neck CTA did not demonstrate any significant stenosis of cervical carotid or vertebral arteries.Head CT demonstrated small chronic infarct in the right occipital lobe, but no evidence of acute intracranial processes. All images were personally reviewed and independently interpreted. LDL was 122, and hemoglobin A1c was 6.0. Negative HIV, RPR, C3, C4 and beta-hCG. Normal ESR with slightly elevated CRP (5.88). CSF studies were unrevealing. The patient was seen by inpatient stroke neurology team, who felt that the presentation is consistent with RCVS. The patient was started on verapamil and given magnesium in addition to aspirin and atorvastatin. Following the discharge was seen for migraine management and headache clinic. Started onReyvow and will be initiated on Botox. Topiramate dose was increased to 100 mg at bedtime. Headaches improved after that. At the present time, complains of fatigue, but denies any focal neurological symptoms. Compliant with secondary stroke prevention measures. Switched verapamil to morning wonders if it is correct. Also wonders if she could reduce the dose of hydralazine given that her blood pressure is on the lower side. EXAM: Physical Exam: Vitals: BP 112/78 (BP Location: Left arm, Patient Position: Sitting, Cuff Size: Adult Large) Pulse 76 Wt 96.6 kg (213 lb) SpO2 98% BMI 41.60 kg/m?? General: pt is in NAD, cooperative. Skin: normal turgor, moist mucous membranes, no lesions/rashes noticed. HEENT: ATNC, white sclera, normal conjunctiva. Respiratory: Symmetric lung excursion, no accessory respiratory muscle use. Abdomen: Non distended. Neurological: awake, cooperative, follows commands, no aphasia or dysarthria noted, cranial nerves II-XII: no ptosis, extraocular motility is full, face is symmetric, tongue is midline, equally movesall extremities, strength is 5/5 bilaterally in upper and lower extremities, no pronator drift, deep tendon reflexes are equal bilaterally, sensation to the light touch, vibration, and pinprick is intact bilaterally, finger to nose and [id number] tests are intact bilaterally, casual gait is normal. Tandem gait is with minimal difficulty. 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 She denies any focal neurological symptoms today. She completed her evaluation. Repeat CTA demonstrated resolution of vasoconstriction without residual stenosis. In my opinion, she could taper off hydralazine gradually if her blood pressure remainswithin normal range. Regarding verapamil, I advised the patient to check with the pharmacist if herextended release formulation is PM, because in such case it should be taken at the bedtime. The rest of my recommendations are summarized below. Diagnoses: ICD-10-CM 1. H/O ischemic multifocal multiple vascular territories stroke Z86.73 2. Reversible cerebrovascular vasoconstriction syndrome I67.841 Adult Neurology Rehabilitation Nurse Referral Plan: At today's visit we thoroughly discussed current symptoms, results of stroke evaluation, symptoms and signs of stroke, secondary stroke prevention measures, and the plan. Symptoms and signs of stroke were discussed. The patient was advised to call 911 with any SUDDEN onset of weakness, vision loss, speech problems, numbness, or severe headache of unknown cause. For secondary stroke prevention, I recommended the patient to: -Continue aspirin and atorvastatin lifelong with LDL goals as listed below -Long-term blood pressure goal is less than 130/85 -Long-term LDL goal is 40-70, but at least less than 100 -Long-term goal of hemoglobin A1C is less than 7.0 -Low-salt low-fat diet -Regular aerobic exercise 30 minutes 3-4 times per week Next follow-up appointment is on as needed basis. Total Time: 47 minutes spent on the date of the encounter doing chart review, history and exam, documentation and further activities per the note. Ánegl De La Torre MD [facility] Neurology (Chart documentation was completed in part with WID[employer] voice-recognition software. Even though reviewed, some grammatical, spelling, and word errors may remain.) documented in this encounter Nursing Notes * Toby Johnson - 10/12/2024 8:00 AM CDT Yumiko Loya is a 49 year old female who presents for: Chief Complaint Patient presents with Consult Since leaving hospital, feeling very fatigue; PCP told her ask whether continuing hydralazine is necessary anymore Initial Vitals: BP 112/78 (BP Location: Left arm, Patient Position: Sitting, Cuff Size: Adult Large) Pulse 76 Wt 96.6 kg (213 lb) SpO2 98% BMI 41.60 kg/m?? Estimated body mass index is 41.6 kg/m?? as calculated from the following: Height as of 05/02/24: 1.524 m (5'). Weight as of this encounter: 96.6 kg (213 lb).. Body surface area is 2.02 meters squared. BP completed using cuff size: large Toby Johnson documented in this encounter Plan of Treatment Upcoming Encounters Date Type Department Care Team (Late st Contact Info) Description 11/02/2024 7:15 AM CDT Office Visit [facility] [address] [facility] [address] Clin [address] [place] [id number] Lemuel Davis MD [address] [place] [address] Charly Howell MD [address] [facility] [address] [place] [address] 11/23/2024 3:30 PM CDT Office Visit [facility] Neurology [address] 3[address] [place] [phone] Meghann Navarro, DONTE RESEARCH MICROBIOLOGIST [address] [facility] [id number] [place], [place] [id number] documented as of this encounter Visit Diagnoses Diagnosis H/O ischemic multifocal multiple vascular territories stroke- Primary Transient ischemic attack (TIA), and cerebral infarction without residual deficits Reversible cerebrovascular vasoconstriction syndrome Other ill-defined cerebrovascular disease documented in this encounter Additional Health Concerns Assessment Noted Time PHQ-9 Depression Total Score: 7 09/28/19 9:57 AM CDT documented as of this encounter Care Teams Beauty Shop Manager Relationship Specialty Start Date End Date Clarke Martinez [place] [address] PCP - General 05/04/24 documented as of this encounter
--- OUTSIDE RECORDS SUMMARY | 2024-10-16 08:45 | XMS_ITS | Encounter Summary ---
Author Organization [address] [place] [address] Care Team Providers Care Track Hoe Operator Name Role Phone Clarke Martinez DO Primary Care Provider [phone] Reason for Visit * Rehab Therapy Occupational Therapy (Routine: Next available opening) - Authorized Specialty Diagnoses / Procedures Referred By Jair hernandez Referred To Contact Occupational Therapy Diagnoses Cerebrovascular accident (CVA) due to other mechanism (H) [address] [address] Phone: tel: Referral ID Status Reason Start Date Expiration Date V isits Requested Visits Authorized [id number] Authorized 03/08/2024 03/07/2025 60 60 Encounter Details Date Type Department Care Team (Latest Contact Info) Description 10/16/2024 8:45 AM CDT Therapy Visit [address] [phone] Stacia Zurita MD [address] [id number] Sindi Gutierrez, OTR Cerebrovascular accident (CVA) due [...] Description 11/02/2024 7:15 AM CDT Office Visit [facility] [address] [facility] [address]th [address] [address] [place] [phone] Lemuel Davis MD [address] [place] [address] Charly Howell MD [address] [facility] [address] [place], [place] [address] 11/23/2024 3:30 PM CDT Office Visit [facility] Neurology Clinic [place] [id number] [facility] 3rd [place] [address] Meghann Navarro, DONTE [facility] [address] [facility] [id number] [place], [place] [address] documented as of this encounter Visit Diagnoses Diagnosis Cerebrovascular accident (CVA) due to other mechanism (H)- Primary Visual disturbance Unspecified visual disturbance Lack of coordination documented in this encounter Additional Health Concerns Assessment Noted Time PHQ-9 Depression Total Score: 7 09/28/19 9:57 AM CDT documented as of this encounter Care Teams Track Hoe Operator Relationship Specialty Start Date End Date Clarke Martinez DO [address] [place] [address] PCP - General 05/04/24 documented as of this encounter
--- OUTSIDE RECORDS SUMMARY | 2024-10-23 08:45 | XMS_ITS | Encounter Summary ---
Author Organization [address] [place] [address] Care Team Providers Care Tube Room Cashier Name Role Phone Clarke Martinez DO Primary Care Provider [phone] Reason for Visit * Rehab Therapy Occupational Therapy (Routine: Next available opening) - Authorized Specialty Diagnoses / Procedures Referred By Jair hernandez Referred To Contact Occupational Therapy Diagnoses Cerebrovascular accident (CVA) due to other mechanism (H) [address] [address] Phone: tel: Referral ID Status Reason Start Date Expiration Date V isits Requested Visits Authorized [id number] Authorized 03/08/2024 03/07/2025 60 60 Encounter Details Date Type Department Care Team (Late st Contact Info) Description 10/23/2024 8:45 AM CDT Therapy Visit [address] [phone] Stacia Zurita MD [address] [id number] Sandra Hernandez OTR [facility] [address] [place] [address] Cerebrovascular accident (CVA) due to [...] in an abandoned building, in an overnight mcc, or couch-surfing.) Yes 05/02/2024 Are you worried [...] on file documented as of this encounter Progress Notes * Sandra Hernandez, OTR - 10/23/2024 11:34 AM CDT DISCHARGE Reason for Discharge: Patient has met all goals. Equipment Issued: visual HEP, cognitive HEP, foam block Discharge Plan: Patient to continue home program. She is welcome to return to OP OT in the future, as needed, with new referral from her provider. Referring Provider: Stacia Zurita 10/23/24 0500 Appointment Info Treating Provider Sandra Hernandez, OTR/L Visits Used 22 - [facility] Medical Diagnosis Cerebrovascular accident (CVA) due to other mechanism (H) OT Tx Diagnosis Decreased IND with ADLs/IADLs Precautions/Limitations fall Other pertinent information Max 60 visits of OT. NO IADLS/COMMUNITY REINT, SI, OR COG CODES (ONLY IF NEUROPSYCH TESTING COMPLETED). Progress Note/Certification Onset of Illness/Injury or Date of Surgery 05/02/24 Therapy Frequency 1x/week Predicted Duration 12 weeks Progress Note Due Date 10/30/24 Progress Note Completed Date 08/07/24 Goals OT Goals 1;2;3;4;5;6;7 OT Goal 1 Goal Identifier Near vision/peripersonal visual scanning Goal Description Patient will report and/or demonstrate ability to tolerate 60 minutes on the computer/reading (with a recommended 20-30 sec.break every 20 minutes) with minimal to no eye strain for increased independence with various ADL tasks (communication with others, management of healthcare, etc.), using compensatory strategies as needed. Rationale In order to maximize safety and independence with performance of self- care activities Goal Progress Goal met. Educated in visual accommodations for ease/IND with visual activities. Trained in multi-activity peripersonal visual HEP - see list below. Continues to demonstrate just BNLs with saccades and NPC with oculomotor screen but demonstrates significant improvements and subjectively reports improvements in visual strain with daily activities. Is now able to concentrate and complete visual activities for >60 mins at a time. Pt to continue with visual HEP to continue progressing beyond time of discharge. Target Date 10/30/24 Date Met 10/23/24 OT Goal 2 Goal Identifier Extrapersonal visual scanning/community mobility Goal Description Patient to complete extrapersonal visual scanning tasks with improved efficiency and accuracy by demonstrating WNL on 4 modes of Dynavision and Scancourse with little to no increase in symptoms, using compensatory strategies prn, for increased independence with functional mobility. Rationale In order to maximize safety and independence with performance of self- care activities Goal Progress Goal met. Educated in visual accommodations for ease/IND with visual activities. Trained in multi-activity peripersonal visual HEP (see list below). Trained in extrapersonal visual scanning activities, including Dynavision light board and BiVABA visual scan course - see results below. Demonstrates significant improvement over time and scores WFLs. Pt to continue with large-scale scanning activities as part of visual HEP to continue progressing skills beyond time of discharge prn. Target Date 10/30/24 Date Met 09/18/24 OT Goal 3 Goal Identifier Adaptive equipment/strategies Goal Description Pt will identify and use 3 adaptive equipment/strategies (computer adaptations, self-awareness and self-management of symptoms, use of adaptive techniques, fatigue management, etc.) to promote ADL/IADL completion (e.g. reading, exercising, work, sleep, driving) Rationale In order to maximize safety and independence with performance of self- care activities Goal Progress Goal met. Educated in visual accommodations for ease/IND with visual activities, as well as pacing/fatigue management strategies and memory compensatory strategies (see goal area below). Pt to continue utilizing compensatory strategies, as needed, for ease and IND with daily activities. Target Date 10/30/24 Date Met 10/23/24 OT Goal 7 Goal Identifier Memory/Safety Goal Description Patient will verbalize understanding of cognitive screen results and demonstrate application of 3 memory/cognitive compensatory strategies to increase patient's safety and independence with tasks in the home and community/work setting (schedule management, medication management, fin ancial management, to-do items, managing customers, managing staff/inventory). Rationale In order to maximize safety and independence with performance of self- care activities;In order to maximize safety and independence with ADL/IADLs;In order to maximize safety and independence with cognitive function within the home or community;In order to maximize independence with tasks requiring functional cognition/executive function for school, work, medication or financial mgmt Goal Progress Goal met. Pt educated in memory compensatory strategies, including lifestyle factors (physical and cognitive exercise, diet, vision/hearing, sleep, socialization, mental health) as wellas specific strategies (attention, association, chunking/clustering, visualization, language-based strategies, repetition/rehearsal, organization, and external aids). Trained in cognitive HEP including speed card game and SET/numerical reasoning with pt performing at about 85-100% accuracy. Pt to continue with strategies and HEP to continue progressing beyond time of discharge prn. Target Date 10/30/24 Date Met 10/23/24 Subjective Report Subjective Report Yumiko reports readiness for discharge today as she cannot make her appointment next week due to scheduling conflict. She feels she has all the tools and exercises necessary to keep progressing on her own and feels confident she can continue with her HEP beyond discharge. Objective Measures Objective Measures Objective Measure 1;Objective Measure 2;Objective Measure 3;Objective Measure 4;Objective Measure 5;Objective Measure 6;Objective Measure 7;Objective Measure 8;Objective Measure 9;Objective Measure 10 Objective Measure 1 Objective Measure Scan Course Details As of 07/03/2024 - On 60 foot scan course with targets high/medium/low, patient located 10/10 on the right and 10/10 on the left in 36.5 seconds. On second trial, pt located 10/10 on the left and 10/10 on the right in 36.2 seconds. WNL is consistent scores of >19/20, completing course in 35-50 seconds. Objective Measure 2 Objective Measure MoCA Details As of 08/07/24 - To further assess cognition, administered the [place] Cognitive Assessment (MoCA), which was designed as a rapid screening instrument for mild cognitive dysfunction with a score of 26/30 considered normal. Administered MoCA 8.2 with pt scoring 26/30 (MIS = 11/15), indicatingpotential normal cognition. Pt scored 4/5 on visuospatial/executive (error with chair copy), 3/3 onnaming, 6/6 on attention, 2/3 on language (gets 7 words in 1 min with fluency), 2/2 on abstraction,3/5 on delayed recall (recognized final 2 words with multiple choice cues), and 6/6 on orientation.Improving, previously scored 25/30 on 06/05/24. Objective Measure 3 Objective Measure SDMT Details As of 07/03/24: With reading glasses. The Symbol Digit Modalities Test (SDMT) is a screeninginstrument commonly used to assess neurological skills like attention, perceptual speed, motor speed, and visual scanning. In 90 seconds, the pt completed 34 symbols this date. Target score is 47-54 for patient's demographics and >25 for safety with driving. Previously scored 26 on 06/26/24 when not wearing her reading glasses. Objective Measure 4 Objective Measure Traffic Sign/Law Recognition Details As of 06/26/24 - Pt scored 11/12 on sign recognition (WNLs) and 8/8 on law recognition (WNLs). Objective Measure 5 Objective Measure Right Foot Tap Measure Details As of 06/26/24: Right Foot Tap Measure requires the patient to tap R foot 10 times, alternating between R and L side of barrier on floor (about 12 inches between tapping sites). Average time is approximately 5-6 seconds. Pt completed within 3.52 seconds this date which is WFLs. Objective Measure 6 Objective Measure Dynavision Details As of 09/18/2024: Dynavision is a treatment intervention used to address reaction time, visual scanning, peripheral visual awareness, visual attention, and visuomotor reaction time across a broad, and active visual field. Dynavision consists of a large wall-mounted board housing 64 small square buttons. These buttons are arranged in a pattern of five nested rings. Because the buttons are backlit, patients engage with this task in a low lighting environment. The data recorded below reflects the number of hits the patient achieved under standardized parameters within a specified time limit. On Mode A (user paced), pt was able to hit 66 targets within one minute (52+ for WFL). On Mode B(one second exposure), pt was able to hit 68 targets within one minute (42+ for WFL). On Mode A Continuous (user paced), pt was able to hit 248 targets within four minutes (205+ for WFL). On Divided Attention Mode, pt was able to hit 53 targets within one minute (35+ WFL). Pt currently presents WFLon this assessment. Objective Measure 7 Objective Measure Artemas Making Details As of 07/03/2024: With reading glasses. Artemas making requires a variety of cognitive processes, including attention, visual search, scanning, sequencing, shifting, psychomotor speed, abstraction, cognitive flexibility, the ability to execute and modify a plan of action, and the ability to maintain two trains of thought simultaneously. Artemas A is a simple trail making task. Average performance requires task completion in 29 seconds. Today, patient completed Artemas A in 58.8 sec (WFLs; previously 37 seconds on 06/26/24). Artemas B introduces an alternating condition. When discussing return to community mobility, research literature recommends a cut off score of 90 seconds. Today, patient completed Artemas B in 1 min 29 sec (WFLs; previously scored 2 minutes and 29 seconds on 06/26/24). Objective Measure 8 Objective Measure Softball Core Molder/pinch strength Details As of 07/10/24 - R hand: 55# wreath and garland maker hand strength (was 36#), 17# lateral pinch (was 13#), and 14# palmar pinch (Was 7#). L hand: 51# wreath and garland maker hand strength (same as previous), 18# lateral pinch (same as previous), and 17# palmar pinch (was 16#). Objective Measure 9 Objective Measure 9HPT Details As of 07/10/24 - R hand: 23.6 sec (was 38.6 sec). L hand: 25.4 sec (was 25.8 sec). Objective Measure 10 Objective Measure Oculomotor screen Details As of 10/23/24 - Tracking appears WFLs. Horizontal saccades: min undershoot to R side as eyes fatigued with increased repetitions. Vertical saccades: WFLs bilaterally. NPC: approximately 11 cmon fourth of four trials (BNLs but significantly improved from 19-20 cm on 08/07/24 and 35cm at time of evaluation, norm is about 5-6 cm). Treatment Interventions (OT) Interventions Therapeutic Activity Therapeutic Activity Therapeutic Activity Minutes (27583) 40 Ther Act 1 Reassessment, discharge summary/HEP Ther Act 1 - Details Facilitated skilled review of SET HEP with pt 100% accurate with SET 20-21. Toassess progress with visual skills, administered oculomotor screen - see results above. Pt overall demonstrates significant improvements though continues to score just BNLs with NPC and saccades. Additionally, collaborated with pt for subjective review of goal areas with pt reporting significant improvements in all areas with plan to continue with HEP to continue progressing beyond time of discharge. To continue progressing visual skills and engagement in daily activities, educated in dischargesummary/recommendations, including: fatigue/symptom management strategies (stovetop burner, plan/jean oritize/pace), memory strategies (lifestyle factors, specific strategies, cognitive HEP including speed card game and math/number activities - trained in Cross Current and SmartDocs (Teknowmics) thisdate), hand exercises (foam block, stress ball/hand strengthener), and visual HEP including tracking (circles, infinity, tennis ball/marbles), saccades (reading, letter/number cancellation, cards, word search, Highlights, iSpy, spot the difference, Post-It notes, large- scale scanning like driving/walking/grocery store, games), convergence (E on stick, Tiburcio string), and accommodation (E alternated with Flores Chart). Emphasized continuation of HEP to progress skills and overall visual activity tolerance for engagement in daily activities with focus on convergence, accommodation, and saccades tasks in particular. Educated in follow up and referral process for return to OP OT in the future,as needed. Issued custom handout for carryover to home. Skilled Intervention Skilled reassesment and education/training in discharge summary/HEP to promoteIND with ADLs/IADLs Patient Response/Progress Yumiko reports understanding of discharge summary/HEP and has no furtherquestions/concerns. Endorses readiness for discharge today. Goals met. Education Learner/Method Patient;Listening;Demonstration;Reading Education Comments see daily flowsheet for details Plan Home program UE HEP: foam block. visual HEP: tracking circles and infinity, E and Tiburcio string (x75 sec intervals), saccades (sorting cards, Arnulfo 3M), and other activities (Flores Chart decoding, Spot It!, apps on tablet, [employer]). Ed/strategies: cognitive fatigue, memory ed/strategies. cognitive HEP: speed, SET (95%) Updates to plan of care discharged Total Session Time Timed Code Treatment Minutes 40 Total Treatment Time (sum of timed and untimed services) 40 Thank you for the referral of this patient. If you have any questions regarding the information in this report, please feel free to contact me per the information provided below. Sandra Hernandez MA, OTR/L Occupational Therapist [address] [address] Clinic Clinic documented in this encounter Plan of Treatment Upcoming Encounters Date Type Department Care Team (Late st Contact Info) Description 11/02/2024 7:15 AM CDT Office Visit [facility] [address] [facility] [address] [place] [address] Lemuel Davis MD [address] [place] [address] Charly Howell MD [address] [facility] [address] [place] [address] 11/23/2024 3:30 PM CDT Office Visit [facility] [place] [address] [facility] 3rd [place] [phone] Meghann Navarro, DONTE [facility] [address] [facility] [id number] [place] [address] documented as of this encounter Visit Diagnoses Diagnosis Cerebrovascular accident (CVA) due to other mechanism (H)- Primary documented in this encounter Additional Health Concerns Assessment Noted Time PHQ-9 Depression Total Score: 7 09/28/19 9:57 AM CDT documented as of this encounter Care Teams Tube Room Cashier Relationship Specialty Start Date End Date Clarke Martinez DO [address] [place] [address] PCP - General 05/04/24 documented as of this encounter
--- OUTSIDE RECORDS SUMMARY | 2024-10-27 13:45 | XMS_ITS | Encounter Summary ---
Author Organization [place] Address [address] [facility] [place] [address] Care Team Providers Care Atmospheric Physicist Name Role Phone Clarke Martinez DO Primary Care Provider [phone] Encounter Details Date Type Department Care Team (Latest Contact Info) Description 09/12/2024 Travel Social History Tobacco Use Types Packs/Day Years [...] in an abandoned building, in an overnight group home, or couch-surfing.) Yes 05/02/2024 Are you worried [...] Description 11/02/2024 7:15 AM CDT Office Visit [facility] [address] [address] [place] [phone] Lemuel Davis MD [address] [place] [phone] Charly Howell MD [address] [place] [address], [facility] [address] [place], [place] [phone] 11/23/2024 3:30 PM CDT Office Visit [facility] [address] 3rd [place] [address] Meghann Navarro APRN [address] [id number] [place], [place] [id number] documented as of this encounter Visit Diagnoses Not on filedocumented in this encounter Care Teams Atmospheric Physicist Relationship Specialty Start Date End Date Clarke Martinez [place] [address] PCP - General 05/04/24 documented as of this encounter
--- OUTSIDE RECORDS SUMMARY | 2024-10-27 13:45 | XMS_ITS | Encounter Summary ---
Author Organization [place] Address [address] [place] [address] Care Team Providers Care Drafter Automotive Design Layout Name Role Phone Clarke Martinez DO Primary Care Provider [phone] Encounter Details Date Type Department Care Team (Latest Contact Info) Description 10/09/2024 Travel Social History Tobacco Use Types Packs/Day [...] Answer Date Recorded Do you have housing? (Housin g is defined as stable permanent housing [...] Description 11/02/2024 7:15 AM CDT Office Visit [facility] [address] [phone] Lemuel Davis MD [address] [place] [id number] Charly Howell MD [address] [place] [address], [address] [address] 11/23/2024 3:30 PM CDT Office Visit [facility] [address]rd [place] [phone] Meghann Navarro APRN [address] [id number] [place], [place] [address] documented as of this encounter Visit Diagnoses Not on filedocumented in this encounter Additional Health Concerns Assessment Noted Time PHQ-9 Depression Total Score: 7 09/28/19 25 9:57 AM CDT documented as of this encounter Care Teams Drafter Automotive Design Layout Relationship Specialty Start Date End Date Clarke Martinez DO [address] [facility] [address] PCP - General 05/04/24 documented as of this encounter
--- OUTSIDE RECORDS SUMMARY | 2024-10-27 13:45 | XMS_ITS | Encounter Summary ---
Author Organization [place] Address [address] [facility] [place] [address] Care Team Providers Care Bleacher Kraft Pulp Name Role Phone Clarke Martinez DO Primary Care Provider [phone] Reason for Visit * Reason Onset Date Comments Appointment 10/10/2024 H/O ischemic mul tifocal multiple vascular territories stroke [Z86.73], Visual impairment [H54.7], visual impairement and recent history of multifocal strokes Call Back 10/10/2024 Yumiko called sancho lazar she still has not heard from the care team. Please call Yumiko at [phone]. Thank you Encounter Details Date Type Department Care Team (Late st Contact Info) Description 10/10/[address] [address] None Appointment (H/O ischemic multifocal multiple vascular territories stroke [Z86.73], Visual impairment [H54.7], visual impairement and recent history of multifocal strokes); Call Back (Yumiko called because she still has not heard from the care team. Please call Yumiko at [phone]. Thank you ) Social History Tobacco Use Types Packs/Day Years [...] in an abandoned building, in an overnight care home, or couch-surfing.) Yes 05/02/2024 Are you [...] on file documented as of this encounter Miscellaneous Notes * Telephone Encounter - Brigette Holcomb - 10/26/2024 1:09 PM CDT Called and spoke to Yumiko Made her an appointment in Oct with Dr. Howell Discussed Wait time Billing / insurance Clinic address Parking / cost Appt information will be on manny Holcomb Communication Head Cook on 10/26/2024 at 1:11 PM * Telephone Encounter - YudithTing mei - 10/26/2024 11:42 AM CDT [facility] Phone Message May a detailed message be left on voicemail: yes Reason for Call: Other: Yumiko called because she still has not heard from the care team. Please call Yumiko at [phone]. Thank you Action Taken: Message routed to: [facility] [place] ([facility]): Eye Travel Screening: Not Applicable Date of Service: * Telephone Encounter - Oh Chun - 10/10/2024 12:56 PM CDT [facility] Phone Message May a detailed message be left on voicemail: yes Reason for Call: Appointment Intake Referring Provider Name: Meghann Navarro APRN CNP in [facility] Diagnosis and/or Symptoms: H/O ischemic multifocal multiple vascular territories stroke [Z86.73], Visual impairment [H54.7], visual impairement and recent history of multifocal strokes Diagnosis not in protocol. Please call patient back at [phone] for scheduling. Thank you. Action Taken: Message routed to: [facility] ([facility]): Eye Travel Screening: Not Applicable documented in this encounter Plan of Treatment Upcoming Encounters Date Type Department Care Team (Late st Contact Info) Description 11/02/2024 7:15 AM CDT Office Visit [facility] [address] [facility] [address] [place] [address] Lemuel Davis MD [address] [place], [place] [phone] Charly Howell MD [address] [facility] [address] [place], [place] [address] 11/23/2024 3:30 PM CDT Office Visit [facility] [address]rd [place] [address] Meghann Navarro APRN [facility] [facility] [id number] [place] [address] documented as of this encounter Visit Diagnoses Not on filedocumented in this encounter Additional Health Concerns Assessment Noted Time PHQ-9 Depression Total Score: 7 09/28/19 9:57 AM CDT documented as of this encounter Care Teams Bleacher Kraft Pulp Relationship Specialty Start Date End Date Clarke Martinez DO [address] [place] [address] PCP - General 05/04/24 documented as of this encounter
--- OUTSIDE RECORDS SUMMARY | 2024-10-27 13:45 | XMS_ITS | Encounter Summary ---
Author Organization [place] Address [address] [facility] [place] [address] Care Team Providers Care Foundry Metallurgist Name Role Phone Clarke Martinez DO Primary Care Provider [phone] Reason for Visit * Reason Onset Date Comments Previsit 09/25/2024 Encounter Details Date Type Department Care Team (Late st Contact Info) Description 09/25/2024 PRE VISIT [facility] [address], [address] [place] [address] Ángel De La Torre MD [address] [place] [address] Previsit Social History Tobacco Use Types Packs/Day Years [...] in an abandoned building, in an overnight intermediate, or couch-surfing.) Yes 05/02/2024 Are you worried [...] encounter Miscellaneous Notes * Telephone Encounter - Darrian Lawrence - 09/25/2024 8:24 AM CDT NEUROLOGY PRE- VISIT RECORDS RECEVEIVED FROM: Referred by Ramy Vanegas MD REASON FOR VISIT: I63.89 (ICD-10-CM) - Cerebrovascular accident (CVA) due to other mechanism (H) PROVIDER: Britt DATE OF APPT: 10/12/24 NOTES (FOR ALL VISITS) STATUS DETAILS OFFICE NOTE from referring provider In chart OFFICE NOTE from other specialist DISCHARGE SUMMARY from hospital 05/02/24 DISCHARGE REPORT from ER 05/02/24 OPERATIVE REPORT EMG REPORT EEG Physical therapy OT in chart IMAGING (FOR ALL VISITS) STATUS DETAILS MRI (HEAD, NECK, SPINE) MRI/MRA BRAIN 05/06/24, 05/03/24, 05/02/24 XRAY (SPINE) *NEUROSURGERY* CT (HEAD, NECK, SPINE) CT HEAD 07/11/24, 05/06/24, 05/05/24, 05/02/24 Does patient have C2C? Year last updated Action YES [] Please update at appointment if outdated more than 5 years NO [x] N/A Please complete C2C at appointment documented in this encounter Plan of Treatment Upcoming Encounters Date Type Department Care Team (Late st Contact Info) Description 11/02/2024 7:15 AM CDT Office Visit [facility] [place] [address] [facility] 9 Hi Clin 9A [place] [phone] Lemuel Davis MD [address] [place] [id number] Charly Howell MD [address] [place] [address], CLINIC [address] [place] [address] 11/23/2024 3:30 PM CDT Office Visit [facility] Neurology [address] 3rd [place] [phone] Meghann Navarro APRN [address], [place] [address] documented as of this encounter Visit Diagnoses Not on filedocumented in this encounter Care Teams Foundry Metallurgist Relationship Specialty Start Date End Date Clarke [place] [address] PCP - General 05/04/24 documented as of this encounter
--- OUTSIDE RECORDS SUMMARY | 2024-10-27 13:45 | XMS_ITS | Clinical Summary ---
Author Organization [place] Address [facility] [place] [address] Care Team Providers Care Manager Transit Name Role Phone Clarke Martinez DO Primary Care Provider [phone] Allergies No known active allergies Medications cyclobenzaprine (FLEXERIL) 10 MG tablet Take 10 mg by mouth 3 times daily as needed for muscle spasms. 01/26/20 24 Active naproxen (NAPROSYN) 500 MG tablet Take 500 mg by mouth 2 times daily as needed for moderate pain. 03/30/19 25 Active cloNIDine (CATAPRES) 0.1 MG tabletIndications: Benign essential hypertension Take 1 tablet (0.1 mg) by mouth 2 times daily. 60 tablet 05/12/19 25 Active aspirin 81 MG EC tabletIndications: Cerebrovascular accident (CVA), unspecified mechanism (H) Take 1 tablet (81 mg) by mouth daily. 100 tablet 05/13/19 25 Active hydrALAZINE (APRESOLINE) 25 MG tabletIndications: Benign essential hypertension Take 0.5 tablets (12.5 mg) by mouth every 8 hours. 90 tablet 05/12/19 25 Active verapamil ER (CALAN-SR) 240 MG CR tabletIndications: Cerebrovascular accident (CVA) due to other mechanism (H),Benign essential hypertension Take 1 tablet (240 mg) by mouth at bedtime. 90 tablet 05/12/19 25 Active magnesium oxide (MAG-OX) 400 MG tabletIndications: Chronic nonintractable headache, unspecified headache type Take 1 tablet (400 mg) by mouth daily. 90 tablet 05/13/19 25 Active FLUoxetine (PROZAC) 20 MG capsule Take 40 mg by mouth daily. 09/12/19 25 025 Active gabapentin (NEURONTIN) 300 MG capsule Take 300 mg by mouth 3 times daily. 09/12/19 25 Active atorvastatin (LIPITOR) 20 MG tablet Take 20 mg by mouth daily. 05/23/19 25 Active topiramate (TOPAMAX) 100 MG tabletIndications: Intractable chronic migraine without aura and without status migrainosus Take 1 tablet (100 mg) by mouth at bedtime. 90 tablet 1 09/28/19 25 Active Lasmiditan Succinate (REYVOW) 50 MG TABSIndications:Mi graine without aura and without status migrainosus, not intractable Take 50 mg by mouth at onset of headache (migraine. One tab in [address] for 8 hours. Max 4 days/month) . 4 tablet 1 09/28/19 25 Active topiramate (TOPAMAX) 25 MG tabletIndications: Chronic nonintractable headache, unspecified headache type Take 1 tablet (25 mg) by mouth at bedtime. For 6days then increase to 2tablets po at bedtime daily 120 tablet 05/12/19 25 025 Discontinued Hospital, Clinic, or Other Facility Administered Medication Ordered Dose Route Frequency Start Date End Date Status Botulinum Toxin Type A (BOTOX) 200 units injection 155 UnitsIndications:Int ractable chronic migraine without aura and without status migrainosus 155 Units IM SEE ADMIN INSTRUCTIONS 09/29/2024 Active Active Problems Problem Noted Date Diagnosed Date CVA (cerebral vascular accident) 05/02/2024 Encounters Date Type Department Care Team Description 10/23/2024 8:45 AM CDT Therapy Visit [address] [phone] Stacia Zurita MD Peterson, Megan A, OTR Cerebrovascular accident (CVA) due to other mechanism (H) (Primary Dx) 10/23/2024 Travel 10/16/2024 8:45 AM CDT Therapy Visit [address] [phone] Stacia Zurita MD Crane, Kaitlin M, OTR Cerebrovascular accident (CVA) due to other mechanism (H) (Primary Dx); Visual disturbance; Lack of coordination 10/16/2024 Travel 10/12/2024 8:00 AM CDT Office Visit [facility] Neurology [address], [address] [place] [phone] Ramy Vanegas MD Shevchenko, Gennadiy Vasilyevich, MD 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); Reversible cerebrovascular vasoconstriction syndrome 10/11/2024 Travel 10/10/2024 Telephone [facility] [address] [phone] None Appointment (H/O ischemic multifocal multiple vascular territories stroke [Z86.73], Visual impairment [H54.7], visual impairement and recent history of multifocal strokes); Call Back (Yumiko called because she still has not heard from the care team. Please call Yumiko at [phone]. Thank you ) 10/09/2024 8:45 AM CDT Therapy Visit [address] [address] Stacia Zurita MD Peterson, Megan A, OTR Cerebrovascular accident (CVA) due to other mechanism (H) (Primary Dx) 10/09/2024 Travel 10/04/2024 Telephone [facility] Neurology [facility] [address] [facility] 3rd [place] [phone] Meghann Navarro APRN CNP 10/03/2024 8:45 AM CDT Therapy Visit [address] [phone] Stacia Zurita MD Peterson, Megan A, OTR Cerebrovascular accident (CVA) due to other mechanism (H) (Primary Dx) 10/03/2024 Travel 09/27/2024 10:00 AM CDT Virtual Visit [facility]rology [address] [address] Meghann Navarro APRN CNP Intractable chronic migraine without aura and without status migrainosus (Primary Dx); H/O ischemic multifocal multiple vascular territories stroke; Visual impairment; Migraine without aura and without status migrainosus, not intractable 09/27/2024 PRE VISIT [facility] [address] [address] Meghann Navarro APRN CNP *-*INCOMING RECORDS*-* 09/25/2024 8:45 AM CDT Therapy Visit [address] [address] Stacia Zurita MD Peterson, Megan A, OTR Cerebrovascular accident (CVA) due to other mechanism (H) (Primary Dx) 09/25/2024 Travel 09/25/2024 PRE VISIT [facility] Neurology [address], [address] [place] [phone] Ángel De La Torre MD Previsit 09/18/2024 8:45 AM CDT Therapy Visit [address] [address] Stacia Zurita MD Crane, Kaitlin M, OTR Cerebrovascular accident (CVA) due to other mechanism (H) (Primary Dx); Visual disturbance; Lack of coordination 09/18/2024 Travel 09/12/2024 8:45 AM CDT Therapy Visit [address] [address] Stacia Zurita MD Peterson, Megan A, OTR Cerebrovascular accident (CVA) due to other mechanism (H) (Primary Dx) 09/12/2024 Travel 09/04/2024 8:45 AM CDT Therapy Visit [address] [phone] Stacia Zurita MD Peterson, Megan A, OTR Cerebrovascular accident (CVA) due to other mechanism (H) (Primary Dx) 09/04/2024 Travel 08/28/2024 8:45 AM CDT Therapy Visit [address] [phone] Stacia Zurita MD Strandell, Kathryn L, OT Visual disturbance (Primary Dx); Cerebrovascular accident (CVA) due to other mechanism (H) 08/28/2024 Travel 08/14/2024 8:45 AM CDT Therapy Visit [address] [address] Stacia Zurita MD Peterson, Megan A, OTR Cerebrovascular accident (CVA) due to other mechanism (H) (Primary Dx) 08/14/2024 Travel 08/09/2024 Travel 08/07/2024 8:45 AM CDT Therapy Visit [address] [address] Stacia Zurita MD Peterson, Megan A, OTR Cerebrovascular accident (CVA) due to other mechanism (H) (Primary Dx) 08/07/2024 Travel 08/04/2024 8:45 AM CDT Therapy Visit [address] [phone] Stacia Zurita MD Peterson, Megan A, OTR Cerebrovascular accident (CVA) due to other mechanism (H) (Primary Dx) 08/04/2024 Results Follow-Up [facility] - Neuroscience Service Line [address] [place] [address] Ramy Vanegas MD Subj: Message about your results 08/04/2024 Travel from Last 3 Months Family History Medical History Relation Comments Cerebrovascular Disease Father Coronary Artery Disease Early Onset Mother Relation Status Comments Father Mother Social History Tobacco Use Types Packs/Day Years [...] in an abandoned building, in an overnight usp, or couch-surfing.) Yes 05/02/2024 Are you worried [...] on file Sexual Orientation Not on file Last Filed Vital Signs Vital Sign Reading Time Taken Comments Blood Pressure 112/78 10/12/2024 7:45 AM CDT Pulse 76 10/12/2024 7:45 AM CDT Temperature 37.1 C (98.7 F) 05/10/2024 4:10 PM SUPERVISOR SLITTING AND SHIPPING Respiratory Rate 18 05/11/2024 9:12 AM [employer] Oxygen Saturation 98% 10/12/2024 7:45 AM CDT Inhaled Oxygen Concentration - - Weight 96.6 kg (213 lb) 10/12/2024 7:45 AM CDT Height 152.4 cm (5') 05/02/2024 9:00 PM [employer] Body Mass Index 41.6 05/02/2024 9:00 PM SUPERVIS[employer] Plan of Treatment Upcoming Encounters Date Type Department Care Team (Late st Contact Info) Description 11/02/2024 7:15 AM CDT Office Visit [facility] Eye [place] [address] [facility] [address] [phone] Lemuel Davis MD [address] [place] [phone] Charly Howell MD [address] [place] [address], [address] [address] 11/23/2024 3:30 PM CDT Office Visit [facility] Neurology [address] 3rd [place] [phone] Meghann Navarro, DONTE [facility] [address] [facility] [id number], [place] [phone] Health Maintenance Due Date Last Done Comments ADVANCE CARE PLANNING 1977 ANNUAL REVIEW OF HM ORDERS [address] CT COLONOGRAPHY 1977 FIT 1977 FLEX SIG 1977 sDNA (Cologuard) 1977 PAP 1998 HEPATITIS B VACCINE (3 of 3 - 19+ 3-dose series) 05/22/2008 03/27/2008, 08/28/2005 COVID-19 VACCINE (3 - 2023- season) 2023 01/11/2021, 12/14/2020 INFLUENZA VACCINE (#1) 2024 , 12/14/2020, 12/04/2019, Additional history exists YEARLY PREVENTIVE VISIT 04/24/2025 04/24/19, 03/18/2023, 01/15/2022, Additional history exists BMP 05/03/2025 05/03/2024, 05/02/2024 LIPID 05/03/2025 05/03/2024 MAMMO SCREENING 04/06/2026 04/06/2024, 03/10, 03/24/2023, Additional history exists ZOSTER VACCINE (1 of 2) 2027 DIABETES SCREENING 05/09/2027 05/08/2024, 0 05/08/2024, 05/06/2024, Additional history exists DTAP/TDAP/TD VACCINE (3 - Td or Tdap) 04/23/2030 04/23/2020, 09/30/2006 COLONOSCOPY 09/21/2033 09/22/2023 COLORECTAL CANCER SCREENING 09/21/2033 HEPATITIS C SCREENING Completed 01/15/2022 HIV SCREENING Completed 05/03/2024, 07/14/2010 PHQ-2 (once per calendar year) Completed 09/27/2024, 09/27/2024 HPV VACCINE (No Doses Required) Completed MENINGITIS VACCINE Aged Out No longer eligible based on patient's age to complete this topic PNEUMOCOCCAL VACCINE: PEDIATRICS (0 to 5 YEARS) AND AT-RISK PATIENTS (6 to 49 YEARS) Aged Out No longer eligible based on patient's age to complete this topic Procedures Procedure Name Priority Date/Time Associated Diagnosis Comments GLUCOSE BY METER Routine 05/08/2024 8:24 AM [employer] HIV ANTIGEN ANTIBODY COMBO Routine 05/03/2024 6:25 AM [employer] LIPID PROFILE Routine 05/03/2024 6:25 AM [employer] BASIC METABOLIC PANEL Routine 05/03/2024 6:25 AM [employer] from Last 3 Months or Most Recently Relevant to Health Maintenance Results * (ABNORMAL) Glucose by meter (05/08/2024 8:24 AM SUPER[employer]) GLUCOSE BY METER POCT 104(H) 70 - 99 mg/dL 05/08/2024 8:30 AM SUPER[employer] LABORATORY POC Blood, Capillary BLOOD SPECIMEN / Unknown 05/08/2024 8:24 AM [employer] 05/08/2024 8:30 AM [employer] Stacia Zurita MD LAB - BEAKER POCT Final R esult LABORATORY POC [facility] [address] floor, [address] [place] [address], [facility] * HIV Antigen Antibody Combo Twiggs (05/03/2024 6:25 AM SUPER[employer]) HIV Antigen Antibody Combo Nonreactive Nonreactive 05/03/2024 4:25 PM [employer]PER[employer] LABORATORY Comment:Negative HIV-1 p24 a ntigen and HIV-1/2 antibody screening test results usually indicate the absence of HIV-1 and HIV-2 infection. However, such negative results do not rule-out acute HIV infection. If acute HIV-1 or HIV-2 infection is suspected, detection of HIV-1 or HIV-2 RNA is recommended. This result is obtained using the Esa Elecsys HIV Duo method on the gabe [id number] immunoassay analyzer. Blood STRUCTURE OF LEFT UPPER LIMB / Unknown Venipuncture / Unknown 05/03/2024 6:25 AM SUPER[employer]PING 05/03/2024 6:45 AM [employer] us Kelin Kay MD LAB - BLOOD ORDERABLES Final Res ult U LABORATORY [facility] [address] [facility], [address] [place] [address] * (ABNORMAL) Lipid panel reflex to direct LDL: Non-fasting (05/03/2024 6:25 AM SU[employer]) Cholesterol 197 <200 mg/dL 05/03/2024 1:29 PM SUPER[employer] [facility] LABORATORY Triglycerides 166(H) <150 mg/dL 05/03/2024 1:29 PM SUPER[employer] [facility] Direct Measure HDL 42(L) >=50 mg/dL 05/03/2024 1:29 PM SUPER[employer] [facility] LDL Cholesterol Calculated 122(H) <100 mg/dL 05/03/2024 1:29 PM [employer] [facility] Non HDL Cholesterol 155(H) <130 mg/dL 05/03/2024 1:29 PM [employer] [facility] Blood STRUCTURE OF LEFT UPPER LIMB / Unknown Venipuncture / Unknown 05/03/2024 6:25 AM [employer] 05/03/2024 6:37 AM [employer] Narrative [facility] - 05/03/2024 1:29 PM [employer] Cholesterol Desirable: < 200 mg/dL Borderline High: 200 - 239 mg/dL High: >= 240 mg/dL Triglycerides Normal: < 150 mg/dL Borderline High: 150 - 199 mg/dL High: 200-499 mg/dL Very High: >= 500 mg/dL Direct Measure HDL Female: >= 50 mg/dL Male: >= 40 mg/dL LDL Cholesterol Desirable: < 100 mg/dL Above Desirable: 100 - 129 mg/dL Borderline High: 130 - 159 mg/dL High: 160 - 189 mg/dL Very High: >= 190 mg/dL Non HDL Cholesterol Desirable: < 130 mg/dL Above Desirable: 130 - 159 mg/dL Borderline High: 160 - 189 mg/dL High: 190 - 219 mg/dL Very High: >= 220 mg/dL us Neeraj Vail MD LAB - BLOOD ORDERABLES F inal Result U LABORATORY [facility] [address] [facility] [address], [address] [place] [address], [facility] * (ABNORMAL) Basic metabolic panel (05/03/2024 6:25 AM [employer]) Sodium 138 135 - 145 mmol/L 05/03/2024 7:07 AM [facility] Potassium 4.0 3.4 - 5.3 mmol/L 05/03/2024 7:07 AM [facility] Chloride 100 98 - 107 mmol/L 05/03/2024 7:07 AM [facility] Carbon Dioxide (CO2) 26 22 - 29 mmol/L 05/03/2024 7:07 AM [facility] Anion Gap 12 7 - 15 mmol/L 05/03/2024 7:07 AM [facility] Urea Nitrogen 10.4 6.0 - 20.0 mg/dL 05/03/2024 7:07 AM [facility] Creatinine 0.67 0.51 - 0.95 mg/dL 05/03/2024 7:07 AM [facility] GFR Estimate >90 >60 mL/min/1.7 3m2 05/03/2024 7:07 AM [facility] Comment:eGFR calculated usak 2020 CKD-EPI equation. Calcium 8.8 8.8 - 10.4 mg/dL 05/03/2024 7:07 AM [facility] Glucose 103(H) 70 - 99 mg/dL 05/03/2024 7:07 AM [facility] Blood STRUCTURE OF LEFT UPPER LIMB / Unknown Venipuncture / Unknown 05/03/2024 6:25 AM [employer] 05/03/2024 6:36 AM [facility] Neeraj Vail MD LAB - BLOOD ORDERABLES F inal Result LABORATORY [facility] [address], [address] [place] [address], [place] [phone] from Last 3 Months or Most Recently Relevant to Health Maintenance Insurance [employer] Advance Directives For more information, please contact: [phone] * Full Code (Latest Code Status on File) Date Activated Date Inactivated Comments 05/02/2024 9:33 PM 05/11/2024 3:31 PM All basic and advanced life-sustaining interventions are performed as appropriate Question Answer Comments Code status determined by: Discussion with patie nt/ legal decision maker Care Teams Manager Transit Relationship Specialty Start Date End Date Clarke [place] [address] PCP - General 05/04/24
--- OUTSIDE RECORDS SUMMARY | 2024-10-27 13:45 | XMS_ITS | Encounter Summary ---
Author Organization [place] Address [address] [place] [address]. [place] [address] Care Team Providers Care Cattle Broker Name Role Phone Clarke Martinez DO Primary Care Provider [phone] Encounter Details Date Type Department Care Team ([facility] st Contact Info) Description 10/04/2024 Telephone [facility] Neurology Clinic [address] [place] [address] Meghann Navarro, DONTE [address] [place] [address] Social History Tobacco Use Types Packs/Day Years [...] in an abandoned building, in an overnight custodial, or couch-surfing.) Yes 05/02/2024 Are you worried [...] encounter Miscellaneous Notes * Telephone Encounter - Gautam Silva - 10/04/2024 4:41 PM CDT Scheduled appt with Meghann for Botox. Scheduled per Iris Gutierrez Rn documented in this encounter Plan of Treatment Upcoming Encounters Date Type Department Care Team (Late st Contact Info) Description 11/02/2024 7:15 AM CDT Office Visit [facility] Eye [facility] [address] [facility] [address] [place] [address] Lemuel Davis MD [address] [place], [place] [address] Charly Howell MD [address] [facility], CL[facility]IC [address]A [place], [place] [phone] 11/23/2024 3:30 PM CDT Office Visit [facility] Neurology Clinic [place] [address] [facility] [address] 3rd [place] [address] Meghann Navarro, DONTE [facility] [address] [facility] [id number] [place], [place] [address] documented as of this encounter Visit Diagnoses Not on filedocumented in this encounter Additional Health Concerns Assessment Noted Time PHQ-9 Depression Total Score: 7 09/28/19 25 9:57 AM CDT documented as of this encounter Care Teams Cattle Broker Relationship Specialty Start Date End Date Clarke Martinez DO [address] [place] [address] PCP - General 05/04/24 documented as of this encounter
--- OUTSIDE RECORDS SUMMARY | 2024-10-27 13:45 | XMS_ITS | Encounter Summary ---
Author Organization [place] Address [address] [facility] [place] [address] Care Team Providers Care Gear Technician Name Role Phone Clarke Martinez DO Primary Care Provider [phone] Encounter Details Date Type Department Care Team (Latest Contact Info) Description 10/23/2024 Travel Social History Tobacco Use Types Packs/Day [...] in an abandoned building, in an overnight penitentiary, or couch-surfing.) Yes 05/02/2024 Are you worried [...] Description 11/02/2024 7:15 AM CDT Office Visit [facility] Eye [address] [address] Lemuel Davis MD [address] [place] [address] Charly Howell MD [address] [place] [address], [address] [address] 11/23/2024 3:30 PM CDT Office Visit [facility] Neurology [address] 3rd [place] [phone] Meghann Navarro APRN [address] [id number] [place], [place] [address] documented as of this encounter Visit Diagnoses Not on filedocumented in this encounter Additional Health Concerns Assessment Noted Time PHQ-9 Depression Total Score: 7 09/28/19 25 9:57 AM CDT documented as of this encounter Care Teams Gear Technician Relationship Specialty Start Date End Date Clarke Martinez DO [address] [facility] [address] PCP - General 05/04/24 documented as of this encounter
--- OUTSIDE RECORDS SUMMARY | 2024-10-27 13:45 | XMS_ITS | Encounter Summary ---
Author Organization [place] Address [address] [facility] [place] [address] Care Team Providers Care Birth Attendant Name Role Phone Clarke Martinez DO Primary Care Provider [phone] Encounter Details Date Type Department Care Team (Latest Contact Info) Description 10/11/2024 Travel Social History Tobacco Use Types Packs/Day [...] Description 11/02/2024 7:15 AM CDT Office Visit [facility] Eye [address] [address] Lemuel Davis MD [address] [place] [address] Charly Howell MD [address] [place] [address], [address] [address] 11/23/2024 3:30 PM CDT Office Visit [facility] Neurology [address] 3rd [place] [phone] Meghann Navarro APRN [address] [id number] [place], [place] [address] documented as of this encounter Visit Diagnoses Not on filedocumented in this encounter Additional Health Concerns Assessment Noted Time PHQ-9 Depression Total Score: 7 09/28/19 25 9:57 AM CDT documented as of this encounter Care Teams Birth Attendant Relationship Specialty Start Date End Date Clarke Martinez DO [address] [facility] [address] PCP - General 05/04/24 documented as of this encounter
--- OUTSIDE RECORDS SUMMARY | 2024-10-27 13:45 | XMS_ITS | Encounter Summary ---
Author Organization [place] Address [address] [place] [address] Care Team Providers Care Instrument Mechanics Supervisor Name Role Phone Clarke Martinez DO Primary Care Provider Encounter Details Date Type Department Care Team (Latest Contact Info) Description 10/03/2024 Travel Social History Tobacco Use Types Packs/Day [...] in an abandoned building, in an overnight prison, or couch-surfing.) Yes 05/02/2024 Are you worried [...] Description 11/02/2024 7:15 AM CDT Office Visit [facility] Eye [address] [phone] Lemuel Davis MD [address] [place] [phone] Charly Howell MD [address] [place] [address], [address] [address] 11/23/2024 3:30 PM CDT Office Visit [facility] Neurology [address] 3rd [place] [phone] Meghann Navarro APRN [address] [id number] [place], [place] [address] documented as of this encounter Visit Diagnoses Not on filedocumented in this encounter Additional Health Concerns Assessment Noted Time PHQ-9 Depression Total Score: 7 09/28/19 25 9:57 AM CDT documented as of this encounter Care Teams Instrument Mechanics Supervisor Relationship Specialty Start Date End Date Clarke Martinez DO [address] [facility] [address] PCP - General 05/04/24 documented as of this encounter
--- OUTSIDE RECORDS SUMMARY | 2024-10-27 13:45 | XMS_ITS | Encounter Summary ---
Author Organization [place] Address [address] [facility] [address] Care Team Providers Care Label Remover Name Role Phone Clarke Martinez DO Primary Care Provider Reason for Visit * Reason Onset Date Comments *-*INCOMING RECORDS*-* 09/27/2024 Encounter Details Date Type Department Care Team (Late st Contact Info) Description 09/27/2024 PRE VISIT [facility] Neurology Clinic [address] 3rd [place] [address] Meghann Navarro APRN [id number] [place], [place] [id number] *-*INCOMING RECORDS*-* Social History Tobacco Use Types Packs/Day Years [...] in an abandoned building, in an overnight senior care, or couch-surfing.) Yes 05/02/2024 Are you worried [...] encounter Miscellaneous Notes * Telephone Encounter - Dora Osman - 07/10/2024 9:19 AM CDT RECORDS RECEIVED FROM: Care Everywhere REASON FOR VISIT: Headache Cerebrovascular accident (CVA) due to other mechanism PROVIDER: Meghann Navarro APRN CNP DATE OF APPT: 09/27/24 @ 10:00 am NOTES (FOR ALL VISITS) STATUS DETAILS OFFICE NOTE from referring provider Internal Hosp Referral OFFICE NOTE from other specialist Care Everywhere 05/16/24 Clarke Martinez DO @[facility] DISCHARGE SUMMARY from hospital Internal 05/02/24-05/11/24 Stacia Zurita MD @[facility] DISCHARGE REPORT from the ER Internal 05/02/24 Rosalio Collier MD @[facility] MEDICATION LIST Internal IMAGING (FOR ALL VISITS) LUMBAR PUNCTURE Internal [facility] 05/03/24 XR Lumbar Puncture IR Internal [facility] 05/06/24 IR Angio Carotid Cervical Bilat 05/03/24 IR Carotid Cerebral Angio Bilat MRI (HEAD, NECK, SPINE) Internal [facility] 05/06/24 MRA Brain (COW) 05/06/24 MR Brain 05/03/24 MRA Brain (COW) 05/03/24 MR Brain 05/02/24 MR Brain 05/02/24 MRA Neck (Carotid) 05/02/24 MRA Brain (COW) CT (HEAD, NECK, SPINE) Internal [facility] (Navya) 07/11/24 CT Head (Navya) 07/11/24 CTA Head Neck 05/06/24 CT Head Perfusion 05/05/24 CTA Head Neck 05/05/24 CT Head 05/02/24 CTA Head Neck documented in this encounter Plan of Treatment Upcoming Encounters Date Type Department Care Team (Late st Contact Info) Description 11/02/2024 7:15 AM CDT Office Visit [facility] Eye [place] [id number] [facility] [address] [phone] Lemuel Davis MD [address] [place] [phone] Charly Howell MD [address] [place] [address], [address] [address] 11/23/2024 3:30 PM CDT Office Visit [facility] Neurology Clinic [address] 3rd [place] [phone] Meghann Navarro APRN [facility] [address] [place] [address] [id number] [place], [place] [id number] documented as of this encounter Visit Diagnoses Not on filedocumented in this encounter Additional Health Concerns Assessment Noted Time PHQ-9 Depression Total Score: 7 09/28/19 9:57 AM CDT documented as of this encounter Care Teams Label Remover Relationship Specialty Start Date End Date Clarke Martinez DO [address] [place] [address] PCP - General 05/04/24 documented as of this encounter
--- OUTSIDE RECORDS SUMMARY | 2024-10-27 13:45 | XMS_ITS | Encounter Summary ---
Author Organization [place] Address [address] [facility] [place] [address] Care Team Providers Care Conveyor Feeder Name Role Phone Clarke Martinez DO Primary Care Provider Reason for Visit * Reason Onset Date Comments Call Back 07/06/2024 Referral for gla sses Encounter Details Date Type Department Care Team (Late st Contact Info) Description 07/06/2024 Telephone [facility] Neurology Clinic [address]rd [place] [address] None Call Back (Referral for glasses) Social History Tobacco Use Types Packs/Day Years [...] in an abandoned building, in an overnight halfway, or couch-surfing.) Yes 05/02/2024 Are you worried [...] encounter Miscellaneous Notes * Telephone Encounter - Wagner Bellamy - 07/06/2024 2:43 PM CDT [facility] Call Center Phone Message May a detailed message be left on voicemail: yes Reason for Call: Other: Pt requesting call back to discuss a referral that should be sent from Neurology to her eye doctor for glasses. Pt states her eye doctor told her she needed a referral sent over to them for prescription glasses as she is using cheater glasses currently. Pt is scheduled to see Ángel De La Torre MD on 10/12/2024. Pt would like a call back to further discuss. Pt's call back # [phone] Action Taken: Message routed to: [facility] Neurology Travel Screening: Not Applicable documented in this encounter Plan of Treatment Upcoming Encounters Date Type Department Care Team (Late st Contact Info) Description 11/02/2024 7:15 AM CDT Office Visit [facility] Eye [facility] - [address] [facility] [address] [place] [address] Lemuel Davis MD [address] [place], [place] [phone] Charly Howell MD [address] [facility] [address] [place], [place] [phone] 11/23/2024 3:30 PM CDT Office Visit [facility] Neurology [address]rd [place] [address] Meghann Navarro, DONTE [id number] [place] [address] documented as of this encounter Visit Diagnoses Not on filedocumented in this encounter Care Teams Conveyor Feeder Relationship Specialty Start Date End Date Clarke Martinez DO [place] [address] PCP - General 05/04/24 documented as of this encounter
--- OUTSIDE RECORDS SUMMARY | 2024-10-27 13:45 | XMS_ITS | Encounter Summary ---
Author Organization [place] Address [address] [facility] [place] [address] Care Team Providers Care Board Hammer Operator Name Role Phone Clarke Martinez DO Primary Care Provider [phone] Encounter Details Date Type Department Care Team (Latest Contact Info) Description 10/16/2024 Travel Social History Tobacco Use Types Packs/Day [...] in an abandoned building, in an overnight [facility], or couch-surfing.) Yes 05/02/2024 Are you worried [...] CDT Office Visit [facility] Eye [address] [phone] Lemuel Davis MD [address] [place] [phone] Charly Howell MD [address] [place] [address], [address] [address] 11/23/2024 3:30 PM CDT Office Visit [facility] Neurology [address]rd [place] [phone] Meghann Navarro APRN [address] [id number] [place], [place] [address] documented as of this encounter Visit Diagnoses Not on filedocumented in this encounter Additional Health Concerns Assessment Noted Time PHQ-9 Depression Total Score: 7 09/28/19 25 9:57 AM CDT documented as of this encounter Care Teams Board Hammer Operator Relationship Specialty Start Date End Date Clarke Martinez DO [address] [facility] [address] PCP - General 05/04/24 documented as of this encounter
--- OUTSIDE RECORDS SUMMARY | 2024-10-27 13:45 | XMS_ITS | Encounter Summary ---
Author Organization [place] Address [address] [facility] [place] [address] Care Team Providers Care Skiving Machine Operator Name Role Phone Clarke Martinez DO Primary Care Provider Encounter Details Date Type Department Care Team (Latest Contact Info) Description 09/25/2024 Travel Social History Tobacco Use Types Packs/Day [...] Description 11/02/2024 7:15 AM CDT Office Visit [facility] Eye [address] [address] [place] [phone] Lemuel Davis MD [address] [place] [phone] Charly Howell MD [address] [place] [address], [facility] [address] [place], [place] [address] 11/23/2024 3:30 PM CDT Office Visit [facility] Neurology [address]rd [place] [address] Meghann Navarro APRN [address] [id number] [place], [place] [address] documented as of this encounter Visit Diagnoses Not on filedocumented in this encounter Care Teams Skiving Machine Operator Relationship Specialty Start Date End Date Clarke Martinez DO [place] [address] PCP - General 05/04/24 documented as of this encounter
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
--- OUTSIDE RECORDS SUMMARY | 2024-10-27 13:45 | XMS_ITS | Encounter Summary ---
Author Organization [facility] Address [address] [facility] [place] [address] Care Team Providers Care Principal Consulting Engineer Name Role Phone Clarke Martinez DO Primary Care Provider [phone] Encounter Details Date Type Department Care Team (Latest Contact Info) Description 09/18/2024 Travel Social History Tobacco Use Types Packs/Day [...] in an abandoned building, in an overnight fdc, or couch-surfing.) Yes 05/02/2024 Are you worried [...] AM CDT Office Visit [facility] Eye [address] [address] [place] [phone] Lemuel Davis MD [address] [place] [address] [phone] Charly Howell MD [address] [place] [address], [facility] [address] [place], [place] [address] 11/23/2024 3:30 PM CDT Office Visit [facility] Neurology [address]rd [place] [address] Meghann Navarro APRN [id number] [place], [place] [id number] documented as of this encounter Visit Diagnoses Not on filedocumented in this encounter Care Teams Principal Consulting Engineer Relationship Specialty Start Date End Date Clarke [place] [address] PCP - General 05/04/24 documented as of this encounter
--- OUTSIDE RECORDS SUMMARY | 2024-10-27 13:45 | XMS_ITS | Encounter Summary ---
Author Organization [facility] Address [address] [place] [address]. [place] [address] Care Team Providers Care Urology Physician Name Role Phone Clarke Matrinez DO Primary Care Provider [phone] Encounter Details Date Type Department Care Team ([facility] st Contact Info) Description 08/04/2024 Results Follow-Up [facility] - Neuroscience Service Line [address] [place] [phone] Ramy Vanegas MD [address] [place] [address] Subj: Message about your results Social History Tobacco Use Types Packs/Day Years [...] in an abandoned building, in an overnight alf, or couch-surfing.) Yes 05/02/2024 Are you worried [...] AM CDT Office Visit [facility] [address] [facility] [address] [place] [phone] Lemuel Davis MD [address] [place] [phone] Charly Howell MD [address] [place] [address], CLINIC [address] [place] [phone] 11/23/2024 3:30 PM CDT Office Visit [facility] [address] [place] [phone] Meghann Navarro APRN [address] [id number], [place] [phone] documented as of this encounter Visit Diagnoses Not on filedocumented in this encounter Care Teams Urology Physician Relationship Specialty Start Date End Date Clarke Martinez DO [address] [place] [address] PCP - General 05/04/24 documented as of this encounter
[2024-10-27 13:46] VITALS: BP 139/86; PULSE 76; RESP 16; TEMP 36.6; O2SAT 98; BMI 42.0
[2024-10-27 14:02] LABS: Appearance Urine Clear (Clear)
--- NOTE | 2024-10-27 14:06 | CRLHL7_ITS ---
For Patients: As a result of the Century Cures Act, medical imaging exams and procedure reports are released immediately into your electronic medical record. You may view this report before your referring provider. If you have questions, please contact your health care provider. INDICATION: Right lower quadrant abdominal pain TECHNIQUE: CT abdomen and pelvis acquired with 105 mL Isovue 370 IV contrast. COMPARISON: None. FINDINGS: Lower chest: Subsegmental atelectasis in the lingula. Otherwise unremarkable. Liver: Diffuse hepatic steatosis. No suspicious focal mass. Gallbladder and bile ducts: Cholecystectomy. No intrahepatic or extrahepatic biliary dilatation. Pancreas: Normal appearing. Spleen: Normal size and appearance. Adrenal glands: Normal. Kidneys: Symmetric enhancement. No hydronephrosis. GI tract: Normal caliber and wall thickness. No bowel obstruction. Normal appendix. Vasculature: Abdominal aorta is normal in caliber. Lymph nodes: No enlarged lymph nodes by size criteria. Peritoneum/Abdominal Wall: Unremarkable. Trace intrapelvic free fluid likely physiologic. No pneumoperitoneum. Pelvis: Urinary bladder is distended and thin-walled. Bones: No aggressive osseous lesions. Mild lower lumbar spine degenerative change. IMPRESSION: No acute obstructive or inflammatory process within the abdomen or pelvis. Normal appendix. Please note that all CT scans at this facility use dose modulation, iterative reconstruction, and/or weight-based dosing when appropriate to reduce radiation dose to as low as reasonably achievable. Dictated by Brandon Beckford MD @ 10/27/2024 3:11:32 PM (Electronically Signed)
--- NOTE | 2024-10-27 14:10 | ED.GENADULT ---
HPI - General Adult General Chief complaint: Abdominal Pain Stated complaint: Abdominal pain Time Seen by Provider: 10/27/24 13:45 History of Present Illness HPI narrative: Patient is a 49 year white female was seen by a clinic doctor in [place] today after developing abdominal pain last night worse in the right lower quadrant and right mid quadrant. She has had a hysterectomy. Ovaries were apparently left intact. She has had no vaginal discharge or bleeding. She has had no rectal pain or bleeding. She reports no flank pain but started in her at periumbilical area now radiates a little bit to the right lower quadrant. She still has her appendix by her report. She has had no rigors or chills. Less appetite than normal. No nausea. Pain is continued. Urinalysis was done that shows negative leukocyte esterase, microscopic pending. Patient reports a little bit worse when she is moved or bands. No radiation down her legs. No bowel or bladder changes. Related Data Home Medications ?Medication ?Instructions ?Recorded ?Confirmed clonidine HCl 0.1 mg tablet 0.1 mg PO BID 01/05/23 01/05/23 cyclobenzaprine 10 mg tablet 10 mg PO 3XD 01/05/23 01/05/23 atorvastatin 20 mg tablet 20 mg PO QPM 10/27/24 10/27/24 clonidine HCl 0.2 mg tablet 0.2 mg PO BID 10/27/24 10/27/24 fluoxetine 20 mg capsule mg PO 10/27/24 gabapentin 300 mg capsule 300 mg PO 3XD 10/27/24 10/27/24 hydralazine 25 mg tablet 12.5 mg PO Q8H 10/27/24 10/27/24 lasmiditan 50 mg tablet (Reyvow) 50 mg PO headache 10/27/24 topiramate 100 mg tablet 100 mg PO QPM 10/27/24 10/27/24 verapamil 240 mg tablet,extended 240 mg PO DAILY 10/27/24 10/27/24 release Allergies Allergy/AdvReac Type Severity Reaction Status Date / Time No Known Drug Allergies Allergy Verified 01/05/23 12:51 Review of Systems Status of ROS: Reports: 6 or more systems reviewed and unremarkable except as noted in History and below Exam Narrative: Exam Narrative: Objective: Patient's vital signs are unremarkable and she is afebrile Alert orient x3 no apparent distress HEENT is unremarkable no scleral icterus no facial asymmetry Pulse regular Chest and heart are rate and rhythm regular without murmur and clear to auscultation. Abdomen is obese benign mild suprapubic and right lower quadrant pain to palpation. Mild voluntary guarding. No palpable masses Extremities are no edema neurologic nonfocal. Const: Vital Signs, click to edit/add: Vital Signs - 24 hr 10/27/24 13:46 10/27/24 14:49 10/27/24 15:00 Temperature 97.8 F Pulse Rate 64 71 Pulse Rate [Pulse Oximeter] 76 Respiratory Rate 16 16 Blood Pressure Blood Pressure [Ri ght Upper Arm] 139/86 Pulse Oximetry 98 95 96 Oxygen Delivery Me thod Room Air 10/27/24 15:15 10/27/24 15:20 Temperature Pulse Rate 79 75 Pulse Rate [Pulse Oximeter] Respiratory Rate 16 16 Blood Pressure 113/66 Blood Pressure [Ri ght Upper Arm] Pulse Oximetry 97 99 Oxygen Delivery Me thod Course Vital Signs Vital signs: Initial Vital Signs Temperature 97.8 F 10/27/24 13:46 Temperature Source Temporal Artery Scan 10/27/24 13:46 Pulse Rate 76 10/27/24 13:46 Respiratory Rate 16 10/27/24 13:46 Blood Pressure 139/86 10/27/24 13:46 Blood Pressure Mean 103 10/27/24 13:46 Blood Pressure Position Sitting 10/27/24 13:46 Pulse Oximetry 98 10/27/24 13:46 Oxygen Delivery Method Room Air 10/27/24 13:46 Vital Signs Temperature 97.8 F 10/27/24 13:46 Pulse Rate 76 10/27/24 13:46 Respiratory Rate 16 10/27/24 13:46 Blood Pressure 139/86 10/27/24 13:46 Pulse Oximetry 98 10/27/24 13:46 Oxygen Delivery Method Room Air 10/27/24 13:46 Temperature 97.8 F 10/27/24 13:46 Pulse Rate 75 10/27/24 15:20 Respiratory Rate 16 10/27/24 15:20 Blood Pressure 113/66 10/27/24 15:20 Pulse Oximetry 99 10/27/24 15:20 Oxygen Delivery Method Room Air 10/27/24 13:46 Medications Administered Medications: Discontinued Medications Generic Name Dose Route Start Last Admin Trade Name Freq PRN Reason Stop Dose Admin Sodium Chloride 1,000 mls @ 6,000 mls/hr 10/27/24 14:15 10/27/24 15:25 0.9 % Sodium Chloride 1000 Ml IV 10/27/24 14:24 Infused .Q10M ROSS Infusion Morphine Sulfate 4 mg 10/27/24 14:06 10/27/24 14:42 Morphine 4 Mg/Ml Inj IVP 10/27/24 14:07 4 mg ONCE ONE Administration Medical Decision Making MDM Narrative Medical decision making narrative: 49-year-old female with mid lower and right lower quadrant abdominal pain. Status post hysterectomy. Patient does not have symptoms of a bowel obstruction but certainly could have appendicitis, diverticulitis, intra-abdominal infection. Patient will get the above-mentioned studies will get CT scan of the abdomen pelvis with contrast given she has no dipstick blood in her urine, IV morphine IV fluids, laboratory studies electrolytes. Disposition pending findings above specially on CT scanning. Patient did request pain medication. Surgical consult if needed. Addendum 3:16 p.m.: Patient's Ct scan of the abdomen pelvis looks unremarkable. No appendicitis. No obvious obstruction. Patient does feel better at this time. Her urinalysis looks negative and her lab studies look reassuring as well. Suspect she may have a soft tissue strain of the abdomen or other non operative finding. No other specific complaints noted. At this point I think soft tissue treatment with ice, a leave as needed, light activity, light diet. Would recommend recheck with primary care doctor in the next 2-3 days certainly sooner changes or concerns, return to ED as needed. Lab Data Labs: Lab Results 10/27/24 10/27/24 Range/Units 13:52 14:20 WBC 11.28 H (4.50-11.00) K/uL RBC 4.95 (4.00-5.20) m/uL Hgb 13.7 (12.0-16.0) gm/dL Hct 41.9 (33.0-51.0) % MCV 85 (80-100) fL MCH 28 (26-34) pg MCHC 33 (32-36) gm/dL RDW Coeff of Krystian 13.4 (11.5-15.5) % Plt Count 307 (140-440) K/uL Neut % (Auto) 73.5 H (42.0-72.0) % Lymph % (Auto) 18.0 L (20-44) % [place] % (Auto) 5.7 (0.0-11.0) % Eos % (Auto) 1.3 (0.0-7.0) % Baso % (Auto) 0.1 (0.0-3.0) % Neut # (Auto) 8.30 H (1.7-7.0) K/uL Lymph # (Auto) 2.00 (0.90-2.90) K/uL [place] # (Auto) 0.60 (0.00-0.90) K/UL Eos # (Auto) 0.10 (0.00-0.50) K/uL Baso # (Auto) 0.00 (0.00-0.30) K/uL Abs Immat Gran (auto) 0.20 (0.00-0.30) K/uL Imm/Tot Granulo (auto) 1.4 % INR 0.93 (0.91-1.10) APTT 28 (23-33) Seconds Sodium 136 (135-149) mmol/L Potassium 4.0 (3.6-5.1) mmol/L Chloride 105 (96-114) mmol/L Carbon Dioxide 23 (20-32) mmol/L Anion Gap 8 (7-15) mEq/L BUN 8 (5-24) mg/dL Creatinine 0.7 (0.5-1.5) mg/dL Estimated Creat Clear 71.36 Estimated GFR 107 ml/min Glucose 102 (60-115) mg/dL Calcium 9.2 (8.4-10.6) mg/dL Total Bilirubin 0.3 (0.1-1.5) mg/dL Direct Bilirubin 0.2 (0.0-0.5) mg/dL AST 24 (12-35) U/L ALT 21 (4-35) U/L Alkaline Phosphatase 77 (40-150) U/L C-Reactive Protein 0.6 (0.5-1.0) mg/dL Total Protein 7.5 (6.0-8.3) g/dL Albumin 4.2 (3.3-5.0) g/dL Urine Color Yellow (Yellow) Urine Appearance Clear (Clear) Urine pH 7.0 (5.0-8.5) Ur Specific [place] 1.015 (1.000-1.030) Urine Protein Negative (Negative) Urine Glucose (UA) Negative (Negative) Urine Ketones Negative (Negative) Urine Blood Negative (Negative) Urine Nitrite Negative (Negative) Urine Bilirubin Negative (Negative) Urine Urobilinogen 0.2 (0.2-1.0) Ur Leukocyte Esterase Negative (Negative) Urine RBC 0-2 (0-2) Urine WBC 0-2 (0-5) Ur Squamous Epith Cells Few (None-Few) Urine Bacteria Moderate A (None) Discharge Plan Discharge Clinical Impression: Lower abdominal pain Patient Disposition: Home, Self-Care Condition: Stable Additional Instructions: Light activity, light diet, diet as tolerated, recheck with primary care in 2-3 days not improving or other concerns. Aleve 2 tablets twice a day for the next several days as needed. Activity Level: Light activity Discharge Diet: Full Liquid Prescriptions: No Action cyclobenzaprine 10 mg tablet 10 mg PO 3XD clonidine HCl 0.1 mg tablet 0.1 mg PO BID atorvastatin 20 mg tablet 20 mg PO QPM hydralazine 25 mg tablet 12.5 mg PO Q8H clonidine HCl 0.2 mg tablet 0.2 mg PO BID gabapentin 300 mg capsule 300 mg PO 3XD verapamil 240 mg tablet extended release 240 mg PO DAILY topiramate 100 mg tablet 100 mg PO QPM fluoxetine 20 mg capsule PO Reyvow 50 mg tablet 50 mg PO Follow Up/Referrals: MILTON MAN DO [Primary Care Provider, Family Practice] Stand Alone Forms: MyHealth Info Instructions
[2024-10-27 14:33] LABS: Hematocrit 41.9 % (33.0-51.0); Hemoglobin* 13.7 gm/dL (12.0-16.0); Immature Granulocytes Abs Auto 0.20 K/uL (0.00-0.30); Immature Granulocytes Pct Auto 1.4 %; Lymphocytes Absolute Auto 2.00 K/uL (0.90-2.90); Mean Corpuscular HGB Conc 33 gm/dL (32-36); Mean Corpuscular Hemoglobin 28 pg (26-34); Mean Corpuscular Volume 85 fL (80-100); RDW Coefficient of Variation % 13.4 % (11.5-15.5); Red Blood Count 4.95 m/uL (4.00-5.20); Slide Review Reflex No; White Blood Count* 11.28 K/uL (4.50-11.00)
[2024-10-27] MEDS: MORPHINE 4 MG/ML INJ IVP (14:42)
[2024-10-27 14:45] LABS: Albumin* 4.2 g/dL (3.3-5.0); Chloride* 105 mmol/L (96-114)
[2024-10-27 14:46] LABS: Potassium* 4.0 mmol/L (3.6-5.1); Sodium* 136 mmol/L (135-149)
[2024-10-27 14:48] LABS: Blood Urea Nitrogen* 8 mg/dL (5-24); Creatinine* 0.7 mg/dL (0.5-1.5); Est. Creatinine Clearance* 71.36; Estimated Glomerular Filt Rate 107 ml/min
[2024-10-27 14:49] VITALS: PULSE 64; RESP 16; O2SAT 95
[2024-10-27 14:49] LABS: Alanine Aminotransferase* 21 U/L (4-35); Alkaline Phosphatase* 77 U/L (40-150); Anion Gap 8 mEq/L (7-15); Aspartate Amino Transferase* 24 U/L (12-35); Bilirubin Direct* 0.2 mg/dL (0.0-0.5); Bilirubin Total* 0.3 mg/dL (0.1-1.5); Calcium* 9.2 mg/dL (8.4-10.6); Carbon Dioxide* 23 mmol/L (20-32); Glucose* 102 mg/dL (60-115); Total Protein* 7.5 g/dL (6.0-8.3)
[2024-10-27 14:58] LABS: INR 0.93 (0.91-1.10); Prothrombin Time 13.3 Seconds
[2024-10-27 15:00] VITALS: PULSE 71; O2SAT 96
[2024-10-27 15:15] VITALS: PULSE 79; RESP 16; O2SAT 97
[2024-10-27 15:20] VITALS: BP 113/66; PULSE 75; RESP 16; O2SAT 99
== END 2024-10-27 15:33 | disposition home or self-care (01) ==
PROVIDERS: Emergency Provider Family Medicine; PCP Student in an Organized Health Care Education/Training Program
DX: R10.31 Right lower quadrant pain (principal); Z98.890 Other specified postprocedural states; Z90.710 Acquired absence of both cervix and uterus
CPT/HCPCS: 36415; 74177; 80048; 80076; 81001; 85025; 85610; 85730; 86140; 87086; 94761; 96374; 99284; 99285; J2270; J7030; Q9967